=== PATIENT | male | born 1950 | race Caucasian/White ===

== ENCOUNTER → 2019-11-16 | Outpatient (CLI) | payer MEDICARE, BC ==
--- NOTE | 2019-11-23 12:51 | P.ARTDOP ---
Arterial Doppler LOWER EXTREMITY ARTERIAL DOPPLER: DATE OF SERVICE: 11/16/2019 Reason for study: Bilateral leg cramping. Doppler waveforms: Atypical bilaterally throughout.. Pulse volume recording: []. Pressure gradients: There is a significant gradient above the low thigh bilaterally. More significant on the right than the left. But there is a step up of pressure across the knee on the right. Ankle-brachial indices: 0.57 on the right and 0.45 on the left.. Toe brachial indices: 0.62 on the right, 0.40 on the left Impression: Moderate bilateral fem-pop disease. Cannot exclude iliac component. I am dubious about the right thigh pressure given the waveforms and pressures below. Clinical correlation recommended..
== END | disposition home or self-care (01) ==
LOC: RADUSWWP 07:29
PROVIDERS: ATTEND Family Medicine
DX: I73.9 Peripheral vascular disease, unspecified (principal)
CPT/HCPCS: 93923

== ENCOUNTER → 2020-01-10 | Outpatient (CLI) | payer MEDICARE, BC ==
[2020-01-10 07:59] LABS: African American GFR (CKD) >90 (>60 ml/min/1.73 sqM); Blood Urea Nitrogen 17 mg/dL (9-20); Non-African American GFR(CKD) 78 (>60 ml/min/1.73 sqM)
--- NOTE | 2020-01-10 12:21 | CT ---
EXAMINATION TYPE: CT angio abd aorta w/Runoff DATE OF EXAM: 01/10/2020 COMPARISON: None HISTORY: PVD CT DLP: 1017.8 mGycm, Automated Exposure Control for Dose Reduction was Utilized. CONTRAST: CT scan of the abdomen and pelvis is performed with oral and with IV Contrast, patient injected with 125 mL of Isovue 370. Three-dimensional reconstructions on an alternate workstation. FINDINGS: The abdominal aorta shows atheromatous change. The celiac axis, superior mesenteric artery, renal arteries, inferior mesenteric artery, common iliac and external iliac arteries are patent. Pro ximal internal iliac arteries are occluded, increased density within some of the branches may be due to atheromatous change. The external iliac arteries show atheromatous changes, caliber changes, the left common femoral arter y is small and shows atheromatous change. Superficial femoral artery on the left is occluded. Deep fe moral artery and branches are patent. The popliteal artery is also diminutive, shows reconstitution a t the level of the knee joint, trifurcation vessels are patent proximally, segmental enhancement of t he anterior tibial artery is present as the artery extends peripherally. Peroneal and posterior tibia l arteries are patent peripherally. Dorsalis pedis artery show some enhancement in the foot. On the right the superficial femoral artery is also occluded proximally. Deep femoral artery branches are patent, there is reconstitution of the popliteal artery at the level of the knee. Trifurcation v essels are patent proximally. Segmental enhancement of the anterior tibial arteries present as it ext ends peripherally. The posterior tibial artery and peroneal arteries are patent peripherally. There i s some enhancement of the dorsalis pedis in the foot. LUNG BASES: No significant abnormality is appreciated. LIVER/GB: No significant abnormality is appreciated. PANCREAS: No significant abnormality is seen. SPLEEN: No significant abnormality is seen. ADRENALS: No significant abnormality is seen. KIDNEYS: No significant abnormality is seen. BOWEL: Diverticular changes noted in the sigmoid colon. PROSTATE/SEMINAL VESICLES: No gross abnormal ity seen. LYMPH NODES: No greater than 1cm abdominal or pelvic lymph nodes are appreciated. OSSEOUS STRUCTURES: No significant abnormality is seen. OTHER: No significant additional abnormality is seen. IMPRESSION: Peripheral vascular occlusive disease, bilateral superficial femoral artery occlusion wit h reconstitution of the popliteal arteries. Internal iliac arteries appear occluded proximally.
== END | disposition home or self-care (01) ==
LOC: RADCTMAIN 07:20
PROVIDERS: ATTEND Surgery
DX: I70.201 Unspecified atherosclerosis of native arteries of extremities, right leg (principal); I70.202 Unspecified atherosclerosis of native arteries of extremities, left leg; I74.5 Embolism and thrombosis of iliac artery
CPT/HCPCS: 82565; 84520; 75635; 36415; Q9967

== ENCOUNTER 2022-09-17 10:16 | Inpatient (IN) | payer MEDICARE, BC ==
--- NOTE | 2022-09-17 11:31 | XR ---
EXAMINATION TYPE: XR chest 2V DATE OF EXAM: 09/17/2022 11:24 AM COMPARISON: None TECHNIQUE: XR chest 2V Frontal and lateral views of the chest. CLINICAL INDICATION:Male, 71 years old with history of altered mental status; FINDINGS: Lungs/Pleura: There is flattening of the diaphragm with increased lucency of the lungs. No evidence o f pneumothorax, pleural effusion or focal consolidation. Biapical pleural thickening. Pulmonary vascularity: Unremarkable. Heart/mediastinum: Cardiomediastinal silhouette is unremarkable. Musculoskeletal: Multiple level degenerative disc disease changes seen throughout the spine. IMPRESSION: 1. No acute cardiopulmonary disease process. 2. COPD changes.
--- NOTE | 2022-09-17 11:36 | CT ---
EXAMINATION TYPE: CT brain wo con DATE OF EXAM: 09/17/2022 COMPARISON: None HISTORY: 71-year-old male Loss of vision in Right eye TECHNIQUE: Examination was done in axial plane without intravenous contrast. Coronal and sagittal r econstructions performed. CT DLP: 1231.4 mGycm Automated exposure control for dose reduction was used. FINDINGS: There is no evidence of acute intracranial hemorrhage, acute ischemic changes, mass, mass-effect, or extra-axial fluid collection. There is no effacement of cerebral sulci or basal subarachnoid cister ns. There is no hydrocephalus. There is no midline shift. Lucas-white matter distinction is preserv ed. There is mild to moderate generalized supratentorial volume loss. Secondary mild prominence to the ve ntricular system. Some metastatic calcifications within the carotid siphons. Negative cisterna magna. Trace mucosal thickening maxillary sinuses and anterior ethmoid air cells. Mastoid air cells well pne umatized. Orbits and globes appear intact. Rightward nasal septal deviation. IMPRESSION: [id number] generalized cerebral atrophy. No acute intracranial abnormality seen.
--- NOTE | 2022-09-17 11:53 | CT ---
EXAMINATION TYPE: CT angio head neck DATE OF EXAM: 09/17/2022 COMPARISON: CT brain same day HISTORY: 71-year-old male neurologic deficit, acute, stroke suspected, loss of vision in the right ey e. TECHNIQUE: Contiguous axial scanning of the head and neck performed with IV Contrast, patient injecte d with 65 mL of Isovue 370. Coronal/sagittal MIP reconstructions performed. 3-D reconstructions gener ated on a dedicated workstation. CT DLP: 1884.8 mGycm Automated exposure control for dose reduction was used. FINDINGS: NECK: Emphysematous change in the upper lungs. Biapical parenchymal scarring. Calcified granuloma posterior left upper lung. Conventional arch was a branching anatomy. The vertebral arteries are codominant and patent throughout their course. The right common carotid artery is patent. There is moderate atelectatic change at the carotid bifurcation. Moderate narrowing at the origin of the right ECA. There is moderate, just over 50% narrowing within the right carotid bulb by NASCET criteria. The left common carotid artery is patent. Moderate atherosclerotic change of the left carotid bifurcation. Severe, 90% stenosis at the origin of the left ECA. There is mild, less than 25% narrowing at the left carotid bulb by NASCET criteria. Additional mild, 25% narrowing mid ICA. BRAIN: The vertebral and basilar arteries as well as the remainder of the posterior circulation appears loving nt. The visualized dural venous sinuses are patent. Mild atherosclerotic calcifications throughout the bilateral internal carotid arteries. The bilateral internal carotid arteries are patent. The proximal right ophthalmic artery is not clearly identified . The left ophthalmic artery is visualized. Hypoplastic A1 segment right HIRAM. Otherwise, anterior cir culation is patent. No aneurysmal change is seen. IMPRESSION: NECK: 1. MODERATE ATHEROSCLEROTIC CHANGE OF THE BILATERAL CAROTID BIFURCATIONS. 2. SEVERE, 90% STENOSIS OF THE ORIGIN OF THE LEFT ECA AND MODERATE AT THE ORIGIN OF THE RIGHT ECA. 3. MODERATE, JUST OVER 50% STENOSIS RIGHT CAROTID BULB. 4. MILD SEGMENTAL NARROWINGS OF THE PROXIMAL AND MID LEFT ICA OF LESS THAN 25%. HEAD: 5. NONVISUALIZATION OF THE TAKEOFF OF THE RIGHT OPHTHALMIC ARTERY COULD REFLECT VESSEL OCCLUSION. 6. SCATTERED MILD ATHEROSCLEROTIC CALCIFICATIONS THROUGHOUT THE CAROTID SIPHONS. THERE IS OTHERWISE, NO LARGE VESSEL INTRACRANIAL ARTERIAL OCCLUSION, SIGNIFICANT STENOSIS, OR ANEURYSMAL CHANGE SEEN.
[2022-09-17] MEDS ORDERED: ASPIRIN 325 MG TAB PO STA ×2 (12:17→13:05)
[2022-09-17] MEDS ORDERED: CLOPIDOGREL 75 MG TAB PO STA (12:17)
[2022-09-17 12:41] LABS: Basophils % (A) 0 %; Eosinophils # (A) 0.2 k/uL (0-0.7); Eosinophils % (A) 3 %; HGB 13.8 gm/dL (13.0-17.5); Lymphocytes # (A) 1.3 k/uL (1.0-4.8); Lymphocytes % (A) 27 %; MCH 31.6 pg (25.0-35.0); MCHC 33.7 g/dL (31.0-37.0); MCV 93.9 fL (80.0-100.0); Mean Platelet Volume 9.4; Monocytes # (A) 0.3 k/uL (0-1.0); Monocytes % (A) 5 %; Neutrophils % (A) 62 %; Platelet Count 163 k/uL (150-450); RBC 4.37 m/uL (4.30-5.90); RDW 12.3 % (11.5-15.5); WBC 4.9 k/uL (3.8-10.6)
[2022-09-17 12:52] LABS: Appearance,Urine Clear (Clear); Bilirubin,Urine Negative (Negative); Blood,Urine Negative (Negative); Color,Urine Colorless; Glucose,Urine (UA) Negative (Negative); Ketones,Urine Negative (Negative); Leukocyte Esterase,Urine Negative (Negative); Nitrite,Urine Negative (Negative); Protein,Urine Negative (Negative); Specific Gravity,Urine 1.019 (1.001-1.035); Urobilinogen,Urine <2.0 mg/dL (<2.0)
[2022-09-17 13:05] LABS: ALT 22 U/L (4-49); African American GFR (CKD) 88 (>60 ml/min/1.73 sqM); Anion Gap 9 mmol/L; Blood Urea Nitrogen 19 mg/dL (9-20); Calcium 8.3 mg/dL (8.4-10.2); Carbon Dioxide 21 mmol/L (22-30); Chloride 107 mmol/L (98-107); Creatine Kinase 102 U/L (55-170); Glucose 88 mg/dL (74-99); Non-African American GFR(CKD) 76 (>60 ml/min/1.73 sqM); Sodium 137 mmol/L (137-145); Total Bilirubin 0.7 mg/dL (0.2-1.3)
[2022-09-17 13:14] LABS: Partial Thromboplastin Time 22.4 sec (22.0-30.0); Prothrombin Time 10.2 sec (9.0-12.0)
[2022-09-17 13:16] LABS: Potassium 5.4 mmol/L (3.5-5.1)
[2022-09-17 13:17] LABS: AST 26 U/L (17-59); Albumin 3.9 g/dL (3.5-5.0); Alkaline Phosphatase 74 U/L (38-126); Total Protein 6.7 g/dL (6.3-8.2)
--- NOTE | 2022-09-17 13:22 | ED ---
General Adult HPI - General Chief complaint: Neuro Symptoms/Deficit Stated complaint: syncope Time Seen by Provider: 09/17/22 10:30 Source: patient, RN notes reviewed, old records reviewed Mode of arrival: ambulatory Limitations: no limitations - History of Present Illness Initial comments: Patient is a 71-year-old male who presents emergency Department complaining of sudden onset right eye blindness that occurred prior to arrival. Patient states that occurred at approximately 745 and was resolved by 8 AM this morning. Patient has no symptoms at this time. Chronically wears corrective lenses. Denies any blurry vision. Denies any headaches. Denies being on blood thinners. Does have a history of carotid artery disease and has been seeing Dr. Deluna in the office for this. He was due to have a CT angiogram of the head and neck done later this week but called Dr. Deluna who instructed him to come to the ER at this time. Patient currently denies any sensory deficits, weakness. Has no acute complaints at this time. No visual complaints. Presents for further evaluation. - Related Data Home Medications Medication Instructions Recorded Confirmed Aspirin EC [Ecotrin] 81 mg PO HS 05/14/15 09/17/22 Atorvastatin [Lipitor] 40 mg PO DAILY 09/17/22 09/17/22 Fish Oil/Dha/Epa [Fish Oil 1,200 2 cap PO DAILY 09/17/22 09/17/22 mg Fish Oil] cilostazoL [Pletal] 100 mg PO BID 09/17/22 09/17/22 lisinopriL [Prinivil] 20 mg PO DAILY 09/17/22 09/17/22 Allergies Allergy/AdvReac Type Severity Reaction Status Date / Time No Known Allergies Allergy Verified 09/17/22 11:34 Review of Systems ROS Statement: Those systems with pertinent positive or pertinent negative responses have been documented in the HPI. Review of Systems: CONST: Denies fever EYES: Denies blurry vision ENT: Denies nasal congestion C/V: Denies Chest pain RESP: Denies shortness of breath GI: Denies abdominal pain : Denies dysuria SKIN: Denies rash. MSK: Denies joint pain. NEURO: Denies headache ROS Other: All systems not noted in ROS Statement are negative. Past Medical History Past Medical History: Hypertension Additional Past Medical History / Comment(s): PAD History of Any Multi-Drug Resistant Organisms: None Reported Past Surgical History: No Surgical Hx Reported Additional Past Anesthesia/Blood Transfusion Reaction / Comment(s): PT HAS NEVER RECEIVED ANESTHESIA. Past Psychological History: No Psychological Hx Reported Smoking Status: Never smoker Past Alcohol Use History: Occasional Past Drug Use History: None Reported, Marijuana - Past Family History Mother Family Medical History: Cancer Additional Family Medical History / Comment(s): BREAST CANCER General Exam - General Exam Comments Initial Comments: General: Appears in no acute distress. HEAD: Normal with no signs of head trauma. EYES: PERRLA, EOMI, conjunctiva normal, no discharge. Pupils are 2 mm and equal bilaterally. Visual acuity is unchanged with his corrective lenses, and is 20/20 to 20/25 in both eyes. ENT: Hearing grossly intact, normal oropharynx. RESPIRATORY: Clear breath sounds bilaterally. No wheezes, rales, or rhonchi. C/V: Regular rate and rhythm. S1 and S2 auscultated, no edema, peripheral p ulses 2+ and intact throughout ABD: Abd is soft, nontender, nondistended EXT: Normal range of motion, no obvious deformity SKIN: No rashes or lesions observed on exposed skin. NEURO: Alert and oriented x 4. Cranial nerves II-XII intact. No focal sensory or strength deficits. NIH of 0. GCS of 15. Limitations: no limitations Course Vital Signs 09/17/22 09/17/22 09/17/22 10:23 10:31 12:31 Temperature 98.2 F 98.8 F Pulse Rate 58 L 84 80 Respiratory 20 16 16 Rate Blood Pressure 172/75 151/75 136/76 O2 Sat by Pulse 98 97 99 Oximetry Medical Decision Making - Medical Decision Making Was pt. sent in by a medical professional or institution (, PA, BRIDGE WORKER APPRENTICE, urgent care, hospital, or [facility]...) When possible be specific @ -No Did you speak to anyone other than the patient for history (EMS, parent, family, police, friend...)? What history was obtained from this source @ -No Did you review nursing and triage notes (agree or disagree)? Why? @ -I reviewed and agree with nursing and triage notes Were old charts reviewed (outside hosp., previous admission, EMS record, old EKG, old radiological studies, urgent care reports/EKG's, [facility] records)? Report findings @ -No old charts were reviewed Differential Diagnosis (chest pain, altered mental status, abdominal pain women, abdominal pain men, vaginal bleeding, weakness, fever, dyspnea, syncope, headache, dizziness, GI bleed, back pain, seizure, CVA, palpatations, mental health, musculoskeletal)? @ -Differential CVA Ischemic stroke, hemorrhagic stroke, brain tumor, atypical migraine, Wernicke's encephalopathy, seizure, multiple sclerosis, meningitis, encephalitis, hypoglycemia, Guillain-Marin, electrolytes disturbance, myasthenia gravis.... This is not meant to be an all-inclusive list EKG interpreted by me (3pts min.). @ -As above X-rays interpreted by me (1pt min.). @ -Chest x-ray shows no obvious acute cardio pulmonary process. CT interpreted by me (1pt min.). @ -CT of the brain reveals no obvious acute intracranial process other than chronic atrophy. CT angiogram shows severe stenosis of the left ECA as well as stenosis of the right carotids. Patient also has possible vessel occlusion of the right ophthalmic artery as is no visualization of the takeoff per radiology. No other large vessel obvious occlusion or abnormality present other than the stenosis. U/S interpreted by me (1pt. min.). @ -None done What testing was considered but not performed or refused? (CT, X-rays, U/S, labs)? Why? @ -None What meds were considered but not given or refused? Why? @ -None Did you discuss the management of the patient with other professionals (professionals i.e. DrSilvina, PA, BRIDGE WORKER APPRENTICE, lab, RT, psych nurse, professor of social work, operator cavity pump, teacher, licensing officer, pillowcase cleaner)? Give summary @ -Yes, discussed with neuro critical care on-call Dr. Kenyon who was in agreement with no TPA for the patient. Recommended Plavix and aspirin for the patient. Recommended admission for neurology evaluation. Discussed with Dr. Dario andino of neurology who was in agreement with the plan. Discussed with the admitting physician, Dr. pathak who requested I also consult ophthalmology. Was smoking cessation discussed for >3mins.? @ -No Was critical care preformed (if so, how long)? @ -Yes, 40 minutes Were there social determinants of health that impacted care today? How? (Homelessness, low income, unemployed, alcoholism, drug addiction, tr ansportation, low edu. Level, literacy, decrease access to med. care, shelter, rehab)? @ -No Was there de-escalation of care discussed even if they declined (Discuss DNR or withdrawal of care, Hospice)? DNR status @ -No What co-morbidities impacted this encounter? (DM, HTN, Smoking, COPD, CAD, Cancer, CVA, ARF, Chemo, Hep., AIDS, mental health diagnosis, sleep apnea, morbid obesity)? @ -Carotid artery stenosis Was patient admitted / discharged? Hospital course, mention meds given and route, prescriptions, significant lab abnormalities, going to OR and other pertinent info. @ -With some the patient's presentation and physical exam, I'm concerned for possible stroke for the patient. NIH is currently 0. Therefore stroke activation was not made. Patient is not a TPA candidate as risks far outweigh the benefits at this point is patient has no symptoms and visual acuity has returned to normal. Vital signs within except for limits. Patient was in agreement this plan. Patient's labs are unremarkable other than a hemolyzed potassium which is actually normal. Patient's imaging does show no obvious acute intracranial process, bilateral carotid stenosis, as well as possible occlusion of the right ophthalmic artery despite patient having no current symptoms at this time. I dictated patient. I spoke with neuro care care on-call, Dr. Kenyon he was in agr eement the patient is still not a TPA candidate as NIH remained 0 and has no symptoms. He recommended Plavix and aspirin and medical management. Recommended admission. I discussed this with the patient and he was in agreement with this plan. I discussed with Dr. Delong of neurology was in agreement with the plan. I spoke with the admitting physician, Dr. pathak who accepted the patient and recommended also consult as well. This was placed. Patient admitted in stable condition. Patient was given threatened 25 millions of aspirin as well as Plavix. I also consulted patient's chest with surgeon Dr. Deluna for evaluation while he is here. Undiagnosed new problem with uncertain prognosis? @ -No Drug Therapy requiring intensive monitoring for toxicity (Heparin, Nitro, Insulin, Cardizem)? @ -No Were any procedures done? @ -No Diagnosis/symptom? @ -Suspected TIA, possible right ophthalmic arterial occlusion Acute, or Chronic, or Acute on Chronic? @ -Acute Uncomplicated (without systemic symptoms) or Complicated (systemic symptoms)? @ -Uncomplicated Side effects of treatment? @ -No Exacerbation, Progression, or Severe Exacerbation? @ -No Poses a threat to life or bodily function? How? (Chest pain, [place], [place], pneumonia, PE, COPD, DKA, ARF, appy, cholecystitis, CVA, Diverticulitis, Homicidal, Suicidal, threat to staff... and all critical care pts) @ -Potentially, yes. - Lab Data Result diagrams: 09/17/22 10:54 09/17/22 13:39 Lab Results 09/17/22 09/17/22 09/17/22 Range/Units 10:54 10:54 10:54 WBC 4.9 (3.8-10.6) k/uL RBC 4.37 (4.30-5.90) m/uL Hgb 13.8 (13.0-17.5) gm/dL Hct 41.0 (39.0-53.0) % MCV 93.9 (80.0-100.0) fL MCH 31.6 (25.0-35.0) pg MCHC 33.7 (31.0-37.0) g/dL RDW 12.3 (11.5-15.5) % Plt Count 163 (150-450) k/uL MPV 9.4 Neutrophils % 62 % Lymphocytes % 27 % Monocytes % 5 % Eosinophils % 3 % Basophils % 0 % Neutrophils # 3.0 (1.3-7.7) k/uL Lymphocytes # 1.3 (1.0-4.8) k/uL Monocytes # 0.3 (0-1.0) k/uL Eosinophils # 0.2 (0-0.7) k/uL Basophils # 0.0 (0-0.2) k/uL PT 10.2 (9.0-12.0) sec INR 1.0 (<1.2) APTT 22.4 (22.0-30.0) sec Sodium (137-145) mmol/L Potassium (3.5-5.1) mmol/L Chloride (98-107) mmol/L Carbon Dioxide (22-30) mmol/L Anion Gap mmol/L BUN (9-20) mg/dL Creatinine (0.66-1.25) mg/dL Est GFR (CKD-EPI)AfAm (>60 ml/min/1.73 sqM) Est GFR (CKD-EPI)NonAf (>60 ml/min/1.73 sqM) Glucose (74-99) mg/dL Calcium (8.4-10.2) mg/dL Total Bilirubin (0.2-1.3) mg/dL AST (17-59) U/L ALT (4-49) U/L Alkaline Phosphatase (38-126) U/L Creatine Kinase (55-170) U/L Troponin I (0.000-0.034) ng/mL Total Protein (6.3-8.2) g/dL Albumin (3.5-5.0) g/dL Urine Color Colorless Urine Appearance Clear (Clear) Urine pH 7.0 (5.0-8.0) Ur Specific [facility] 1.019 (1.001-1.035) Urine Protein Negative (Negative) Urine Glucose (UA) Negative (Negative) Urine Ketones Negative (Negative) Urine Blood Negative (Negative) Urine Nitrite Negative (Negative) Urine Bilirubin Negative (Negative) Urine Urobilinogen <2.0 (<2.0) mg/dL Ur Leukocyte Esterase Negative (Negative) 09/17/22 09/17/22 09/17/22 Range/Units 10:54 10:54 13:39 WBC (3.8-10.6) k/uL RBC (4.30-5.90) m/uL Hgb (13.0-17.5) gm/dL Hct (39.0-53.0) % MCV (80.0-100.0) fL MCH (25.0-35.0) pg MCHC (31.0-37.0) g/dL RDW (11.5-15.5) % Plt Count (150-450) k/uL MPV Neutrophils % % Lymphocytes % % Monocytes % % Eosinophils % % Basophils % % Neutrophils # (1.3-7.7) k/uL Lymphocytes # (1.0-4.8) k/uL Monocytes # (0-1.0) k/uL Eosinophils # (0-0.7) k/uL Basophils # (0-0.2) k/uL PT (9.0-12.0) sec INR (<1.2) APTT (22.0-30.0) sec Sodium 137 (137-145) mmol/L Potassium 5.4 H 4.6 (3.5-5.1) mmol/L Chloride 107 (98-107) mmol/L Carbon Dioxide 21 L (22-30) mmol/L Anion Gap 9 mmol/L BUN 19 (9-20) mg/dL Creatinine 1.00 (0.66-1.25) mg/dL Est GFR (CKD-EPI)AfAm 88 (>60 ml/min/1.73 sqM) Est GFR (CKD-EPI)NonAf 76 (>60 ml/min/1.73 sqM) Glucose 88 (74-99) mg/dL Calcium 8.3 L (8.4-10.2) mg/dL Total Bilirubin 0.7 (0.2-1.3) mg/dL AST 26 (17-59) U/L ALT 22 (4-49) U/L Alkaline Phosphatase 74 (38-126) U/L Creatine Kinase 102 (55-170) U/L Troponin I <0.012 (0.000-0.034) ng/mL Total Protein 6.7 (6.3-8.2) g/dL Albumin 3.9 (3.5-5.0) g/dL Urine Color Urine Appearance (Clear) Urine pH (5.0-8.0) Ur Specific [facility] (1.001-1.035) Urine Protein (Negative) Urine Glucose (UA) (Negative) Urine Ketones (Negative) Urine Blood (Negative) Urine Nitrite (Negative) Urine Bilirubin (Negative) Urine Urobilinogen (<2.0) mg/dL Ur Leukocyte Esterase (Negative) - EKG Data -: EKG Interpreted by Me EKG Comments: 12-lead Electrocardiogram Interpretation Note EKG was reviewed and interpreted by myself. 12-lead ECG performed at 1034 is interpreted by me as revealing normal sinus rhythm at a rate of 83 beats per minute. Indeterminate axis. NH interval is 122 ms, QRS duration is 87 ms, QTc is 405 ms. There were no ST or T wave abnormalities to suggest myocardial ischemia or injury. R wave progression across the precordium was satisfactory. By my interpretation this EKG is non-diagnostic for acute ischemia. Critical Care Time Critical Care Time: Yes Total Critical Care Time: 40 Disposition Clinical Impression: TIA (transient ischemic attack), Carotid stenosis Narrative: Possible right ophthalmic artery occlusion Disposition: ADMITTED IP TO THIS HOSP Condition: Stable Referrals: Sydney Jack DO [Primary Care Provider] - 1-2 days Time of Disposition: 12:55
[2022-09-17] MEDS ORDERED: TROPICAMIDE 1% OPHTH DROPS 2 ML BTL BOTH EYES ONE (19:25)
[2022-09-17] MEDS ORDERED: PROPARACAINE 0.5% OPHTH DROPS 15 ML BTL BOTH EYES STA (19:25)
[2022-09-17] MEDS ORDERED: PHENYLEPHRINE 2.5% OPHTH DRP 2ML BOTH EYES SCH (19:30)
--- NOTE | 2022-09-17 20:59 | P.HPIM ---
History of Present Illness This is a pleasant 71 years old male with past medical history of hypertension Patient presents because of a blindness of the left eye. Patient states that in the developed right eye vision difficulty maroi alberto hole his vision of the right eye became greatly. It was not painful and Lasix for about 10 minutes. Patient denies any other complaints, no headache dizziness weakness or numbness. No facial deviation. No slurred speech. No other physical complaints Patient nonsmoker, drinks alcohol moderately, and uses marijuana at times. At home he takes aspirin 81 mg. His PCP is Dr. Damian. Vitals are stable She has unremarkable labs including CBC, INR, BMP, liver enzymes. Urine analysis is negative. Chest x-ray: COPD no acute process CT of the brain: Cerebral atrophy. No acute intracranial process CTA of the head and neck: Moderate atherosclerotic changes of the bilateral carotid bifurcation severe 90% stenosis in the origin of the left ECA and moderate at the origin of the right ECA. Over 50% stenosis of the right carotid bulb. Nonvisualization of the takeoff of the right ophthalmic artery could reflect vessel occlusion. Review of Systems Review of systems CONSTITUTIONAL: No fever, no malaise, no fatigue. HEENT: No recent visual problems or hearing problems. Denied any sore throat. CARDIOVASCULAR: No orthopnea, PND, no palpitations, no syncope. PULMONARY: No shortness of breath, no cough, no hemoptysis. GASTROINTESTINAL: No diarrhea, no nausea, no vomiting, no abdominal pain. Normoactive bowel sounds. NEUROLOGICAL: No headaches, no weakness, no numbness. HEMATOLOGICAL: Denies any bleeding or petechiae. GENITOURINARY: Denies any burning micturition, frequency, or urgency. MUSCULOSKELETAL/RHEUMATOLOGICAL: Denies any joint pain, swelling, or any muscle pain. ENDOCRINE: Denies any polyuria or polydipsia. Past Medical History Past Medical History: Hypertension Additional Past Medical History / Comment(s): PAD History of Any Multi-Drug Resistant Organisms: None Reported Past Surgical History: No Surgical Hx Reported Additional Past Anesthesia/Blood Transfusion Reaction / Comment(s): PT HAS NEVER RECEIVED ANESTHESIA. Past Psychological History: No Psychological Hx Reported Smoking Status: Never smoker Past Alcohol Use History: Occasional Past Drug Use History: None Reported, Marijuana - Past Family History Mother Family Medical History: Cancer Additional Family Medical History / Comment(s): BREAST CANCER Medications and Allergies Home Medications Medication Instructions Recorded Confirmed Type Aspirin EC [Ecotrin] 81 mg PO HS 05/13/09/17/22 History Atorvastatin [Lipitor] 40 mg PO DAILY 09/17/22 09/17/22 History Fish Oil/Dha/Epa [Fish Oil 1,200 2 cap PO DAILY 09/17/22 09/17/22 History mg Fish Oil] cilostazoL [Pletal] 100 mg PO BID 09/17/22 09/17/22 History lisinopriL [Prinivil] 20 mg PO DAILY 09/17/22 09/17/22 History Allergies Allergy/AdvReac Type Severity Reaction Status Date / Time No Known Allergies Allergy Verified 09/17/22 11:34 Physical Exam Vitals: Vital Signs Temp Pulse Resp BP Pulse Ox 09/17/22 12:31 98.8 F 80 16 136/76 99 09/17/22 10:31 84 16 151/75 97 09/17/22 10:23 98.2 F 58 L 20 172/75 98 Intake and Output 09/16/22 09/17/22 09/17/22 22:59 06:59 14:59 Other: Weight 90.718 kg GENERAL: The patient is alert and oriented x3, not in any acute distress. Well developed, well nourished. HEENT: Pupils are round and equally reacting to light. EOMI. No scleral icterus. No conjunctival pallor. Normocephalic, atraumatic. No pharyngeal erythema. No thyromegaly. CARDIOVASCULAR: S1 and S2 present. No murmurs, rubs, or gallops. PULMONARY: Chest is clear to auscultation, no wheezing , no crackles. ABDOMEN: Soft, nontender, nondistended, normoactive bowel sounds. No palpable organomegaly. MUSCULOSKELETAL: No joint swelling or deformity. EXTREMITIES: No cyanosis, clubbing, or pedal edema. NEUROLOGICAL: Gross neurological examination did not reveal any focal deficits. SKIN: No rashes. no petechiae. Results CBC & Chem 7: 09/17/22 10:54 09/17/22 13:39 Assessment and Plan Assessment: Possible TIA with left eye blindness that's completely resolved now. CTA: Possible right ophthalmic artery occlusion. Hypertension, dermis of hypertension for the first 24-48 hours Right carotid bulb stenosis more than 50% Plan: Continue with antiplatelet therapy, currently on aspirin 325 mg on Plavix Neurovascular check Check echocardiogram Follow-up within neurology and ophthalmology consult Vascular surgery consult Labs and medication were reviewed.. Continue same treatment. Continue with s ymptomatic treatment. Resume home medication. Monitor labs and vitals. DVT and GI prophylaxis. Further recommendations as per clinical course of the patient DVT prophylaxis: Subcutaneous heparin GI Prophylaxis: Pepcid Prognosis is guarded
[2022-09-17] MEDS ORDERED: HEPARIN SODIUM,PORCINE/PF 5,000 UNIT/0.5 ML SYRINGE SQ SCH (21:00)
[2022-09-17] MEDS: cilostazoL 100 MG TAB PO SCH (21:05)
[2022-09-17] MEDS: FAMOTIDINE 20 MG/2 ML VIAL IV SCH (21:05)
--- NOTE | 2022-09-18 07:38 | CA ---
Transthoracic Echo Report Name: Nato Herman Age: 71 Gender: M : 1950 Exam Date: 09/17/2022 13:52 Exam Location: [facility] Ht (in): 69 Wt (lb): 200 Ordering Physician: Carlos Montalvo MD Attending/Referring Phys: Commercial Carpenter Bryan Bolton Procedure CPT: Indications: Thrombus Cardiac Hx: Technical Quality: Fair Contrast 1: Total Dose (mL): Contrast 2: Total Dose (mL): MEASUREMENTS (Male / Female) Normal Values 2D ECHO LV Diastolic Diameter PLAX 4.2 cm 4.2 - 5.9 / 3.9 - 5.3 cm LV Systolic Diameter PLAX 2.9 cm IVS Diastolic Thickness 0.9 cm 0.6 - 1.0 / 0.6 - 0.9 cm LVPW Diastolic Thickness 0.9 cm 0.6 - 1.0 / 0.6 - 0.9 cm LV Relative Wall Thickness 0.4 RV Internal Dim ED PLAX 3.2 cm LVOT Diameter 2.1 cm Aortic Root Diameter 2.6 cm LA Systolic Diameter LX 2.0 cm 3.0 - 4.0 / 2.7 - 3.8 cm LV Diastolic Volume MOD BP 53.0 cm??? 67 - 155 / 56 - 104 cm??? LV Systolic Volume MOD BP 20.6 cm??? 22 - 58 / 19 - 49 cm??? LV Ejection Fraction MOD BP 61.1 % >= 55 % LV Cardiac Index MOD BP 1280.0 cm???/min???m??? LV Diastolic Volume MOD 4C 65.6 cm??? LV Systolic Volume MOD 4C 24.1 cm??? LV Ejection Fraction MOD 4C 63.3 % LV Cardiac Index MOD 4C 1640.2 cm???/min???m??? LV Diastolic Length 4C 7.2 cm LV Systolic Length 4C 5.9 cm LV Diastolic Volume MOD 2C 42.7 cm??? LV Systolic Volume MOD 2C 16.2 cm??? LV Ejection Fraction MOD 2C 62.0 % LV Cardiac Index MOD 2C 1047.3 cm???/min???m??? LV Diastolic Length 2C 7.0 cm LV Systolic Length 2C 6.4 cm LA Volume 43.3 cm??? 18 - 58 / 22 - 52 cm??? DOPPLER AV Peak Velocity 187.9 cm/s AV Peak Gradient 14.1 mmHg LVOT Peak Velocity 119.7 cm/s LVOT Peak Gradient 5.7 mmHg AV Area Cont Eq pk 2.3 cm??? MV Peak Velocity 129.2 cm/s MV Peak Gradient 6.7 mmHg MV Mean Velocity 67.4 cm/s MV Mean Gradient 2.2 mmHg MV Velocity Time Integral 35.6 cm MR Peak Velocity 532.5 cm/s MR Peak Gradient 113.4 mmHg Mitral E Point Velocity 99.6 cm/s Mitral A Point Velocity 108.8 cm/s Mitral E to A Ratio 0.9 MV Deceleration Time 214.6 ms MV E' Velocity 11.2 cm/s Mitral E to MV E' Ratio 8.9 TR Peak Velocity 144.9 cm/s TR Peak Gradient 8.4 mmHg Right Ventricular Systolic Press 13.8 mmHg PV Peak Velocity 176.2 cm/s PV Peak Gradient 12.4 mmHg FINDINGS Left Ventricle Normal LV size and wall thickness. Left ventricular ejection fraction is estimated at 55-60 %.normal left ventricular wall motion. Normal left ventricular diastolic filling pattern. Right Ventricle Normal right ventricular size. Right Atrium Normal right atrial size. Left Atrium Normal left atrial size. Mitral Valve Structurally normal mitral valve. Mild MR. Aortic Valve Trileaflet aortic valve. No aortic valve stenosis or regurgitation. Tricuspid Valve Structurally normal tricuspid valve. Mild TR. Pulmonic Valve Pulmonic valve not well visualized. Trace PI. Pericardium Normal pericardium. Aorta Normal size aortic root and proximal ascending aorta. CONCLUSIONS 1. Normal left ventricle size and systolic function 2. Mild mitral and tricuspid regurgitation with no evidence of pulmonary hypertension Previewed by: Dr. Jaens Kang MD (Electronically Signed) Final Date: 18 September 2022 07:37
[2022-09-18 08:19] VITALS: TEMP 97.8
[2022-09-18] MEDS: cilostazoL 100 MG TAB PO SCH ×2 (08:19→20:17)
[2022-09-18] MEDS: ASPIRIN 81 MG PO SCH (08:19)
[2022-09-18] MEDS: FAMOTIDINE 20 MG/2 ML VIAL IV SCH ×2 (08:21→20:17)
[2022-09-18] MEDS: HEPARIN SODIUM,PORCINE/PF 5,000 UNIT/0.5 ML SYRINGE SQ SCH ×2 (08:21→20:17)
--- NOTE | 2022-09-18 08:26 | P.CON ---
Consult Note - . Consult date: 09/18/22 Assessment/Plan:: This is a 71 y/o patient of Dr. Shawn Max's who had cataract surgery about [address] Max last saw the patient in February for an update in glasses. There are no known ophthalmologic problems of glaucoma macular degeneration or other casues of poor vision. He has undegone a YAG capsulotomy on the right eye within the past year. However, on the morning of admission the patient had bent down to burr picker something and realized on righting himself that the vision in the right eye was grayed out. The vision in the left eye was unaffected. Over the following 10 minutes the vision in the right eye returned, first from the bottom and moved through to the upper field of view. There were no associated symptoms of weakness, loss of time, dizziness, slurring of speech and no facial dysmorphia - as noted by his who was witness to the resolution of his symptoms. The patient has not had any issues with PMR or GCA, headaches, weakness, etc. He then presented to the ER and Va at that time was 20/20 OD, and 20/25 OS. B asically, this was his baseline vision, per the patient. Va: 20/20 OD, 20/20-3 OS with current glasses External: without any facial asymmetry, normal function of brow, lids, nasal labial folds, no slurring of speech Pupils: no APD IOP: 10 mm OD & 11 mm Hg OS @ 0735 hrs via [place] CF: full OU EOM: full ductions and versions and near point convergence to his nose Conj: white and quiet Cornea: clear AC: deep & quiet Iris: without pathology Dilated with 2.5 Neosynephrine & 1% tropicamide @ 0740 hrs OU, (WILL be dilated for the next 7 hours) Lens: pseudophakia OU, YAG pc noted OD Vit: clear PVD, OU Optic nerve: s/f/p C:D 0.30 OU, normal rim Mac: +FLR, quiet Post Pole: no Hollenhorsts noted Vascular: normal diameter, no occlusions noted A: 1) amaurosis fugax without ophthalmological consequences of the right eye 2) pseudophakia OU P: Agree with onging medical workup for underlying cause. As this patient very astutely noted a right eye only without any other systemic issues this is most likely a pending vascular occlusion. Thank you for this consultation on your patient. He should return to Dr. Max for his routine ophthalmologic care on discharge.
[2022-09-18] MEDS ORDERED: CLOPIDOGREL 75 MG TAB PO SCH (09:00)
[2022-09-18] MEDS ORDERED: ATORVASTATIN 40 MG TAB PO SCH (09:00)
[2022-09-18] MEDS ORDERED: lisinopriL 20 MG TAB PO SCH (09:00)
--- NOTE | 2022-09-18 10:16 | P.GSCN ---
History of Present Illness Consult date: 09/18/22 Reason for Consult: Carotid stenosis Requesting physician: Carlos Montalvo History of present illness: This is a pleasant 71-year-old male who presented yesterday afternoon to the emergency department with concerns for right vision loss. Patient states that he was bent over and when he was getting up he had vision loss that started at the right bottom of his eye and went up and lasted for about 10 minutes. He de nies any other focal deficits. He is known to Dr. Deluna as she has been monitoring carotid stenosis. His past medical history includes hypertension, peripheral arterial disease, and cataract surgery. He is a nonsmoker. He currently denies any focal deficits. Denies any shortness of breath or chest pain. No recent fevers, abdominal pain, nausea, vomiting, or diarrhea. As part of his workup he underwent a CT of the brain as well as a CT angiogram head and neck. Vascular surgery was consulted for carotid stenosis. Both neurology and ophthalmology also following patient. Imaging Brain CT reports mild to moderate generalized cerebral atrophy. No acute intracranial abnormality seen. CT angiogram head and neck reports moderate arthrosclerotic change of the bilateral carotid bifurcations. Severe 90% stenosis of the origin of the left external carotid artery and moderate at the origin of the right external carotid artery. Moderate just over 50% stenosis right carotid bulb. Mild segmental narrowing of the proximal and mid left ICA of less than 25%. Head reported nonvisualization of the takeoff of the right ophthalmic artery could reflect vessel occlusion. Scattered mild arthrosclerotic calcifications throughout the carotid siphons. There is otherwise no large vessel in intracranial arterial occlusion, Significant stenosis or aneurysmal change seen. Review of Systems A 14 point review systems was completed all pertinent positives and negatives as stated in the HPI. Past Medical History Past Medical History: Hypertension Additional Past Medical History / Comment(s): PAD History of Any Multi-Drug Resistant Organisms: None Reported Past Surgical History: No Surgical Hx Reported Additional Past Anesthesia/Blood Transfusion Reaction / Comm: PT HAS NEVER RECEIVED ANESTHESIA. Past Psychological History: No Psychological Hx Reported Smoking Status: Never smoker Past Alcohol Use History: Occasional Past Drug Use History: None Reported, Marijuana - Past Family History Mother Family Medical History: Cancer Additional Family Medical History / Comment(s): BREAST CANCER Medications and Allergies Home Medications Medication Instructions Recorded Confirmed Type Aspirin EC [Ecotrin] 81 mg PO HS 05/14/15 09/17/22 History Atorvastatin [Lipitor] 40 mg PO DAILY 09/17/22 09/17/22 History Fish Oil/Dha/Epa [Fish Oil 1,200 2 cap PO DAILY 09/17/22 09/17/22 History mg Fish Oil] cilostazoL [Pletal] 100 mg PO BID 09/17/22 09/17/22 History lisinopriL [Prinivil] 20 mg PO DAILY 09/17/22 09/17/22 History Allergies Allergy/AdvReac Type Severity Reaction Status Date / Time No Known Allergies Allergy Verified 09/17/22 11:34 Surgical - Exam Vital Signs Temp Pulse Resp BP Pulse Ox 98.2 F 58 L 20 172/75 98 09/17/22 10:09/17/22 10:09/17/22 10:09/17/22 10:09/17/22 10:23 General appearance: The patient is alert, oriented, appears in no acute distress. HET: Head is normocephalic and atraumatic. Pupils are mechanically dilated, recent eyedrops. Pupils are equal and reactive. Neck: Supple. Heart: Regular. Lungs: Equal expansion, normal respiratory effort. Abdomen: Soft, nondistended. Extremities: Normal skin color and turgor. Neurological: No focal deficits. Strength and sensation are grossly intact. Results - Labs 09/17/22 10:54 09/17/22 13:39 Abnormal Lab Results - Last 24 Hours (Table) 09/17/22 Range/Units 10:54 Potassium 5.4 H (3.5-5.1) mmol/L Carbon Dioxide 21 L (22-30) mmol/L Calcium 8.3 L (8.4-10.2) mg/dL Diabetes panel 09/17/22 09/17/22 Range/Units 10:54 13:39 Sodium 137 (137-145) mmol/L Potassium 5.4 H 4.6 (3.5-5.1) mmol/L Chloride 107 (98-107) mmol/L Carbon Dioxide 21 L (22-30) mmol/L BUN 19 (9-20) mg/dL Creatinine 1.00 (0.66-1.25) mg/dL Glucose 88 (74-99) mg/dL Calcium 8.3 L (8.4-10.2) mg/dL AST 26 (17-59) U/L ALT 22 (4-49) U/L Alkaline Phosphatase 74 (38-126) U/L Total Protein 6.7 (6.3-8.2) g/dL Albumin 3.9 (3.5-5.0) g/dL Calcium panel 09/17/22 Range/Units 10:54 Calcium 8.3 L (8.4-10.2) mg/dL Albumin 3.9 (3.5-5.0) g/dL Pituitary panel 09/17/22 09/17/22 Range/Units 10:54 13:39 Sodium 137 (137-145) mmol/L Potassium 5.4 H 4.6 (3.5-5.1) mmol/L Chloride 107 (98-107) mmol/L Carbon Dioxide 21 L (22-30) mmol/L BUN 19 (9-20) mg/dL Creatinine 1.00 (0.66-1.25) mg/dL Glucose 88 (74-99) mg/dL Calcium 8.3 L (8.4-10.2) mg/dL Adrenal panel 09/17/22 09/17/22 Range/Units 10:54 13:39 Sodium 137 (137-145) mmol/L Potassium 5.4 H 4.6 (3.5-5.1) mmol/L Chloride 107 (98-107) mmol/L Carbon Dioxide 21 L (22-30) mmol/L BUN 19 (9-20) mg/dL Creatinine 1.00 (0.66-1.25) mg/dL Glucose 88 (74-99) mg/dL Calcium 8.3 L (8.4-10.2) mg/dL Total Bilirubin 0.7 (0.2-1.3) mg/dL AST 26 (17-59) U/L ALT 22 (4-49) U/L Alkaline Phosphatase 74 (38-126) U/L Total Protein 6.7 (6.3-8.2) g/dL Albumin 3.9 (3.5-5.0) g/dL Assessment and Plan Assessment: 1. Symptomatic right ICA stenosis just over 50% per CTA 2. Amaurosis fugax, affecting right eye likely from TIA. Now resolved. 3. History of hypertension Plan: 1. CT angiogram head and neck imaging reviewed by Dr. Deluna and agrees with findings 2. Continue current medications 3. Await MRA head and neck and MRI brain results 4. Consult to cardiology, cardiac clearance for carotid endarterectomy versus trans-carotid artery revascularization 5. Await further recommendations from neurology Thank you for this consultation, we will continue to follow. The impression and plan of care has been dictated as directed. I performed a history and examination of this patient, discussed the same with the dictator. I agree with the dictator's note ,documented as a scribe. Any additional findings or plans will be noted.
--- NOTE | 2022-09-18 10:39 | P.CNNES ---
History of Present Illness Consult date: 09/17/22 Requesting physician: Carlos Montalvo Reason for Consult: TIA/possible right opth art occlusion History of Present Illness: Patient is a 71-year-old right-handed male with history of hypertension, hyperlipidemia came to the hospital today at 10:16 AM for right amaurosis fugax. Patient states that he was feeling fine, at around 7:45 AM he bent over to get clothes from the drawer, when he suddenly developed graying in the vision only in right eye. He closed one and then the other eye, and it was monocular, involving only the right eye. The symptoms lasted for about 10 minutes and just like a curtain, the vision reappeared bottom up. The vision completely cleared by 8 AM. There were no associated focal neurological symptoms like slurred speech, facial droop, focal weakness. Patient denied any headache, or any dizziness. Patient denies any history of strokes or TIA in the past. He does take aspirin 81 mg daily for the last 3 years, compliant. Patient has history of cataract surgery in the past. Vital signs on arrival blood pressure 172/75, which came down to 151/75, pulse rate 58, temperature 98.2. CT head revealed mild to moderate generalized cerebral atrophy. No acute intracranial abnormality seen. I personally reviewed CT head, agree with the findings. EKG shows sinus rhythm. Chest x-ray showed no acute process. COPD changes. Patient has history of hypertension for last 6 or 7 years, denies diabetes. He smoked 2 packs per day for 35 years, quit 15 years ago. He takes few drinks 2-3 times a week. Last night he took 2 drinks of rum and Coke, half shot in each. Patient does have peripheral arterial disease for which he follows up with Dr. Deluna. Home medications include aspirin 81 mg at bedtime, lisinopril 20 mg, Pletal 100 mg twice a day, Lipitor 40 mg. Review of Systems Constitutional: Denies chills, Denies fever Eyes: right loss of vision (As per HPI, symptoms resolved now.), denies blurred vision, denies diplopia, denies pain Ears: deny: decreased hearing, ear discharge Ears, nose, mouth and throat: Denies headache, Denies sore throat Cardiovascular: Denies chest pain, Denies shortness of breath Respiratory: Denies cough, Denies excessive sputum Gastrointestinal: Denies abdominal pain, Denies diarrhea, Denies nausea, Denies vomiting Musculoskeletal: Denies low back pain, Denies myalgias, Denies neck pain Integumentary: Denies pruritus, Denies rash Neurological: Reports as per HPI Psychiatric: Denies anxiety, Denies depression Endocrine: Denies fatigue, Denies weight change Hematologic/Lymphatic: Denies easy bleeding, Denies easy bruising Past Medical History Past Medical History: Hypertension Additional Past Medical History / Comment(s): PAD History of Any Multi-Drug Resistant Organisms: None Reported Past Surgical History: No Surgical Hx Reported Additional Past Anesthesia/Blood Transfusion Reaction / Comment(s): PT HAS NEVER RECEIVED ANESTHESIA. Past Psychological History: No Psychological Hx Reported Smoking Status: Never smoker Past Alcohol Use History: Occasional Additional Past Alcohol Use History / Comment(s): SMOKED FOR 40 YEARS , 1 & 1/2 -2 PPD. QUIT SMOKING 5 YEARS AGO. DRINKS 12 BEERS PER WEEK. Past Drug Use History: None Reported, Marijuana - Past Family History Mother Family Medical History: Cancer Additional Family Medical History / Comment(s): BREAST CANCER Medications and Allergies Home Medications Medication Instructions Recorded Confirmed Type Aspirin EC [Ecotrin] 81 mg PO HS 05/14/15 09/17/22 History Atorvastatin [Lipitor] 40 mg PO DAILY 09/17/22 09/17/22 History Fish Oil/Dha/Epa [Fish Oil 1,200 2 cap PO DAILY 09/17/22 09/17/22 History mg Fish Oil] cilostazoL [Pletal] 100 mg PO BID 09/17/22 09/17/22 History lisinopriL [Prinivil] 20 mg PO DAILY 09/17/22 09/17/22 History Allergies Allergy/AdvReac Type Severity Reaction Status Date / Time No Known Allergies Allergy Verified 09/17/22 11:34 Physical Examination - Vital Signs Vital Signs: Vital Signs Temp Pulse Pulse Resp BP BP Pulse Ox 09/17/22 17:10 78 18 141/68 99 09/17/22 16:17 98.4 F 74 16 168/91 97 09/17/22 12:31 98.8 F 80 16 136/76 99 09/17/22 10:31 84 16 151/75 97 09/17/22 10:23 98.2 F 58 L 20 172/75 98 Intake and Output 0709/17/22 09/17/22 06:59 14:59 22:59 Other: # Voids 1 Weight 90.718 kg 90.718 kg Patient is an elderly male, very pleasant, in no acute distress. Patient is alert awake oriented to time place and person. Speech and language functions are normal. Patient can name and repeat very well. No aphasia or dysarthria. Attention, concentration and fund of knowledge is adequate. On cranial nerve examination, pupils are equal, round and reacting to light, visual ramirez are full on confrontation, with no neglect on double simultaneous stimulation. Extraocular muscles are intact with no nystagmus. Face is symmetric, tongue protrudes to the midline. Palatal elevation and sensation normal, hearing and shoulder shrug normal, facial sensation normal. On muscle strength testing, there is no pronator drift and the strength is normal in arms and legs distally and proximally. Deep tendon reflexes are symmetric 2 in the biceps, 2 brachioradialis, 2+ knees, 2 ankles and plantars downgoing bilaterally. Sensory to touch is equal with no neglect on double simultaneous stimulation. Cerebellar function showed no ataxia for [id number] testing. No dysdiadochokinesia. No ataxia for [id number] testing on either side. Tone and bulk of muscles normal. Gait deferred.. On general examination, there is no carotid bruit or murmur, S1-S2 audible. Chest is clear on consultation. Abdomen is soft nontender. No organomegaly, bowel sounds present. Peripheral pulses are present. No edema. Results - Laboratory Findings CBC and BMP: 09/17/22 10:54 09/17/22 13:39 Abnormal Lab Findings: Abnormal Labs 09/17/22 10:54 Potassium 5.4 H Carbon Dioxide 21 L Calcium 8.3 L Assessment and Plan Assessment: * Amaurosis fugax, right eye, the symptoms resolved in 15 minutes. * Hypertension * Hyperlipidemia * X tobacco use * Peripheral arterial disease Plan: * Patient has presented with amaurosis fugax right eye, symptoms resolved in 15 minutes. Patient was taking aspirin 81 mg daily. Agree with adding Plavix 75 mg daily. * CTA of head and neck revealed moderate atherosclerotic changes of the bilateral carotid bifurcations. Moderate, just over 50% stenosis right carotid bulb. Left ICA stenosis of less than 25%. Severe, 90% stenosis of the origin of the left ECA and moderate stenosis at the origin of right ECA. CTA of the head showed nonvisualization of the takeoff of the right ophthalmic artery, could reflect vessel occlusion. Scattered mild atherosclerotic calcifications throughout the carotid siphons. No LVO. * Vascular surgery consultation. * MRI of the brain to rule out acute CVA. MRA of the neck with and without contrast for further evaluation of ICA stenosis . * Ophthalmology also has been consulted. * 2-D echo revealed normal left ventricular size and systolic function with EF 55-60%. Mild MR, TR. No evidence of pulmonary hypertension. Left atrial siz e is normal. * Fasting lipid panel * Hemoglobin A1c * Telemetry monitoring, rule out arrhythmia. * Neurology will follow. Thank you for the consult.
--- NOTE | 2022-09-18 12:13 | CONS ---
CONSULTATION HISTORY OF PRESENT ILLNESS: This is a 71-year-old gentleman with a history of hypertension, hyperlipidemia, peripheral arterial disease, for which he is under the care of Dr. Deluna. He takes lisinopril, Pletal, atorvastatin, and aspirin 81 mg daily. He came into the hospital after an episode of what seems to be amaurosis fugax to the right eye when he lost his vision for maybe about 10 minutes and then regained it back. CT angiography revealed about a 50% lesion in the right internal carotid. Possibility of having some embolization from this lesion is a consideration and Dr. Deluna is considering/contemplating right carotid endarterectomy for this patient. At the time of my evaluation, the patient's vision is 100% back to normal. He is asymptomatic, doing very well. He was also seen by Neurology and CT angiogram also revealed nonvisualization of the takeoff of right ophthalmic artery suggesting that could have been embolized. The patient, however, seems to be doing well at this time, has no chest pain or shortness of breath. He is going for a brain MRI as well. From a cardiac standpoint, he had an echocardiogram, which revealed good systolic function without any significant abnormality on the Doppler exam and no evidence of pulmonary hypertension. This patient is reasonably active. His limiting factor is his lower extremity ischemia, but he can walk 2 blocks without a problem and can climb up and down a flight of stairs without a problem. He has not had a formal stress test in the last several years, but he has no evidence to suggest angina and LV systolic function is normal. I do not see any absolute contraindication for the proposed carotid endarterectomy. I am recommending cautious fluid administration and optimal BP control perioperatively. The patient is on a combination of aspirin, statin, Plavix, and Zestril. Blood pressure control is good. PAST MEDICAL HISTORY: 1. Hypertension. 2. Hyperlipidemia. 3. History of peripheral arterial disease. MEDICATIONS AT HOME: Include; 1. Lisinopril. 2. Aspirin. 3. Atorvastatin. 4. Also, takes Pletal. ALLERGIES: None. PHYSICAL EXAMINATION: VITAL SIGNS: Blood pressure is 122/74, pulse rate is 70 per minute, regular. HEENT: Unremarkable. Fundus was not examined by me. NECK: Supple. There is no JVD. I do not hear a carotid bruit. HEART: Reveals S1, S2 heard normally. No rub, murmur, or gallop. LUNGS: Clear. ABDOMEN: Soft, nontender. LOWER EXTREMITIES: Reveal normal pulses. No edema. CENTRAL NERVOUS SYSTEM: Grossly within normal limits. DIAGNOSTIC DATA: EKG revealed sinus mechanism, no acute changes, arm lead reversal noted. IMPRESSION: 1. Normal physical exam. 2. Episode of amaurosis fugax, from which he has recovered. 3. Moderate bilateral carotid disease. 4. Peripheral artery disease. 5. Hypertension. 6. Hyperlipidemia. RECOMMENDATIONS: No contraindication for the proposed carotid endarterectomy. Advised cautious fluid administration and optimal BP control perioperatively. I will do a repeat EKG. Discussed my thoughts in detail with the patient and . MMODL / IJN: [id number] /
[2022-09-18 12:19] VITALS: PULSE 74
[2022-09-18 14:20] LABS: Chol/HDL Ratio 3.21 Ratio; LDL Cholesterol,Calculated 55.7 mg/dL (0.0-131.0)
--- NOTE | 2022-09-18 14:49 | MR ---
EXAMINATION TYPE: MR brain wo con DATE OF EXAM: 09/18/2022 2:33 PM COMPARISON: CT 09/17/2022. CLINICAL INDICATION:Male, 71 years old with history of Amaurosis fugax; Neuro deficit, vision loss ri ght eye, suspected TIA. TECHNIQUE: Multi planar, multi sequence imaging was performed through the brain including: T1, T2, In version recovery, Diffusion weighted imaging, and gradient echo imaging. No gadolinium was given. FINDINGS: Ventricular dilation in proportion to cerebral atrophy changes. Scattered foci of high T2 s ignal intensity are seen within the periventricular white matter. Midline structures show no abnormal ity. Diffusion-weighted imaging shows no evidence of restricted diffusion. The susceptibility weighte d images do not reveal any evidence for micro-hemorrhage. The bone marrow signal is within normal limits. Paranasal sinuses and mastoid air cells: No significant paranasal sinus disease. Visualized orbits: Bilateral aphakia IMPRESSION: 1. No evidence of intracranial mass or acute/subacute infarct. 2. Minimal Nonspecific white matter changes, likely secondary to small vessel ischemic disease.
--- NOTE | 2022-09-18 15:04 | MR ---
EXAMINATION TYPE: MR angio neck wo/w con DATE OF EXAM: 09/18/2022 2:40 PM CLINICAL INDICATION:Male, 71 years old with history of Amaurosis fugax; Neuro deficit, vision loss ri ght eye, evaluate for occlusion. COMPARISON: MRI brain same day. CTA 09/17/2022. TECHNIQUE: Multiplanar, multi-sequence imaging as well as [id number] and phase contrast imaging w as performed extracranial vasculature of the neck. 2-D and 3-D [id number] imaging. 3-D reformatte d images and maximum intensity projection reformatted images were submitted for evaluation. IV Contrast: 9 cc Gadavist FINDINGS: RIGHT CAROTID SYSTEM: The common carotid artery is patent. Atherosclerotic plaque with at least 50% s tenosis. The internal carotid arteries patent. LEFT CAROTID SYSTEM: The common carotid artery is patent. Atherosclerotic plaque with at least 25 % stenosis. The carotid bifurcations that she no evidence for hemodynamically significant stenosis. The internal carotid arteries patent. The origins of the great vessels and vertebral arteries appear unremarkable. The vertebral arteries a re codominant. 1. IMPRESSIONS: 2. Atherosclerosis at the carotid bifurcations with at least 50% stenosis on the right and 25% steno sis on the left. Similar findings are seen on 09/17/2022 CTA Angio neck which has better resolution. 3. The carotid and vertebral arteries are patent. 4. No evidence aneurysm.
[2022-09-18 17:34] VITALS: BP 134/67; RESP 18
--- NOTE | 2022-09-18 23:16 | PN ---
PROGRESS NOTE DATE OF SERVICE: 09/18/2022 SUBJECTIVE: This is a 71-year-old gentleman who was admitted with features of monocular vision loss in the right eye vision loss in the right eye and possible TIA, evaluated by Vascular surgery and MRI has been ordered. There is no history of any fever, rigors, or chills. Right carotid stenosis more than 50% per CTA. MRI of the brain is pending at this time. No chest pain, no palpitations. PHYSICAL EXAMINATION: VITAL SIGNS: Pulse is 74, blood pressure 127/70, and respirations 16. CHEST: Clear to auscultation. CARDIOVASCULAR: S1, S2. ABDOMEN: Soft. NERVOUS SYSTEM: No focal deficits. LABS: Reviewed. ASSESSMENT: 1. Right monocular vision loss with right carotid stenosis. 2. Hypertension. 3. History of peripheral vascular disease. RECOMMENDATIONS AND DISCUSSION: This 71-year-old gentleman was admitted with multiple complex medical issues, we will monitor the patient closely. I would recommend continue with antiplatelet agents and await MRI. Closely follow with Neurology, vascular surgery, and cardiology. Further recommendations to follow. MMODL / IJN: [id number] /
--- NOTE | 2022-09-19 14:16 | DS ---
DISCHARGE SUMMARY FINAL DIAGNOSES: 1. Right monocular vision loss, possibly right carotid stenosis and TIA. 2. Hypertension. 3. History of peripheral vascular disease. DISPOSITION: Patient will be discharged in stable condition. Guarded prognosis. with neurology and vascular surgery. HISTORY OF PRESENT ILLNESS: This is a 71-year-old gentleman with past medical history of multiple medical issues with right monocular vision loss. The patient had an MRI. Dr. Deluna cleared the patient for discharge. The patient will be discharged with further plans to follow up in the outpatient setting. PHYSICAL EXAMINATION: VITAL SIGNS: Stable. CARDIOVASCULAR: S1, S2 muffled. ABDOMEN: Soft. NERVOUS SYSTEM: No focal deficits. The patient will be discharged on Plavix and see the medication reconciliation sheet for list of medications. Follow up with Dr. Deluna, Dr. Jack, Neurology as recommended. Once again the patient will be discharged in stable condition with guarded prognosis. The patient is keen on going home. MMODL / IJN: [id number] / MTDD
--- NOTE | 2022-09-19 15:56 | P.PN ---
Subjective Progress Note Date: 09/18/22 Patient was seen for follow-up. Patient's was also present today. Patient feels back to normal. Offers no complaints. Telemetry monitoring showing sinus rhythm. Objective - Vital Signs Vital signs: Vital Signs Temp 97.8 F 09/18/22 08:18 Pulse 74 09/18/22 12:18 Resp 16 09/18/22 12:18 BP 127/74 09/18/22 12:18 Pulse Ox 97 09/18/22 12:18 FiO2 Intake & Output 09/17/22 09/18/22 09/18/22 18:59 06:59 18:59 Intake Total 540 20 Balance 540 20 Weight 90.718 kg Intake: IV 20 Invasive Line 1 20 Oral 540 Other: Voiding Method Toilet Toilet # Voids 1 2 1 - Exam Neurological examination completely normal. Cranial nerves, speech language functions, muscle strength, sensation cerebellar functions are normal. - Labs CBC & Chem 7: 09/17/22 10:54 09/17/22 13:39 Labs: Abnormal Lab Results - Last 24 Hours (Table) 09/17/22 Range/Units 10:54 HDL Cholesterol 34.90 L (40.00-60.00) mg/dL Assessment and Plan Assessment: * Amaurosis fugax, right eye, the symptoms resolved in 15 minutes. * Hypertension * Hyperlipidemia * X tobacco use * Peripheral arterial disease Plan: * Patient has presented with amaurosis fugax right eye, symptoms resolved in 15 minutes. Patient was taking aspirin 81 mg daily. Agree with adding Plavix 75 mg daily. Continue dual antiplatelet medications. * CTA of head and neck revealed moderate atherosclerotic changes of the bilateral carotid bifurcations. Moderate, just over 50% stenosis right carotid bulb. Left ICA stenosis of less than 25%. Severe, 90% stenosis of the origin of the left ECA and moderate stenosis at the origin of right ECA. CTA of the head showed nonvisualization of the takeoff of the right ophthalmic artery, could reflect vessel occlusion. Scattered mild atherosclerotic calcifications throughout the carotid siphons. No LVO. * MRI of the brain revealed no acute ischemic process. No acute stroke. Minimal nonspecific white matter changes, likely secondary to small vessel ischemic disease. I personally reviewed MRI agree with the findings. * MRA of the neck with and without contrast revealed atherosclerosis at the carotid bifurcation with at least 50% stenosis on the right and 25% stenosis on the left. Similar findings are seen on 09/17/2022 CTA head and neck. The carotid and vertebral arteries are patent. No aneurysm. * Discussed with vascular surgery. Recommending optimizing medical management with dual antiplatelet medication, and follow-up in their office. Their office ultrasound has some discrepancy with the above CTA and MRA reports. Vascular surgery not recommending surgery at this time. They will make decision as an outpatient after reviewing all test results. * Ophthalmology input appreciated. Recommending medical management. * 2-D echo revealed normal left ventricular size and systolic function with EF 55-60%. Mild MR, TR. No evidence of pulmonary hypertension. Left atrial size is normal. * Fasting lipid panel cholesterol 112, LDL 55, HDL 34 and triglycerides 107. * Hemoglobin A1c 5.7 * Telemetry monitoring, so far showing sinus rhythm, with no other arrhythmia. * Neurologically clear for discharge. Follow up with vascular surgery and ophthalmology.
== END 2022-09-18 20:30 | disposition home or self-care (01) | DRG 123 ==
LOC: EC 10:16 → 3SCARD 13:06
PROVIDERS: ADMIT Internal Medicine; ATTEND Internal Medicine
DX: G45.3 Amaurosis fugax (principal); I73.9 Peripheral vascular disease, unspecified; J44.9 Chronic obstructive pulmonary disease, unspecified; G31.9 Degenerative disease of nervous system, unspecified; I10 Essential (primary) hypertension; E78.5 Hyperlipidemia, unspecified; Z96.1 Presence of intraocular lens; Z97.3 Presence of spectacles and contact lenses; Z79.899 Other long term (current) drug therapy; Z79.02 Long term (current) use of antithrombotics/antiplatelets; Z79.82 Long term (current) use of aspirin; Z87.891 Personal history of nicotine dependence
CPT/HCPCS: 36415; 70450; 70496; 70498; 70549; 70551; 71046; 80053; 80061; 81003; 82550; 83036; 84132; 84484; 85025; 85610; 85730; 93005; 93306; 94760; 99291

== ENCOUNTER 2023-01-01 07:22 | Day surgery (SDC) | payer MEDICARE, BC ==
--- NOTE | 2023-01-01 07:03 | P.GSHP ---
History of Present Illness H&P Date: 01/01/23 CHIEF COMPLAINT: Colon screen HISTORY OF PRESENT ILLNESS: The patient is a 72-year-old male who presents for colon screen. Lower endoscopy was offered for further evaluation and management. PAST MEDICAL HISTORY: Please see list. PAST SURGICAL HISTORY: Please see list. MEDICATIONS: Please see list. ALLERGIES: Please see list. SOCIAL HISTORY: No illicit drug use FAMILY HISTORY: No reports of Crohn disease or ulcerative colitis. REVIEW OF ORGAN SYSTEMS: CONSTITUTIONAL: No reports of fevers or chills. PHYSICAL EXAM: VITAL SIGNS: Stable GENERAL: Well-developed pleasant in no acute distress. HEENT: No scleral icterus. Extraocular movements grossly intact. Moist buccal mucosa. NECK: Supple without lymphadenopathy. CHEST: Unlabored respirations. Equal bilateral excursions. CARDIOVASCULAR: Regular rate and rhythm. Distal 2+ pulses. ABDOMEN: Soft, nontender, nondistended. MUSCULOSKELETAL: No clubbing, cyanosis, or edema. ASSESSMENT: 1. Colon screen. PLAN: 1. Recommend proceeding with a lower endoscopy Past Medical History Past Medical History: CVA/TIA, Hyperlipidemia, Hypertension Additional Past Medical History / Comment(s): PAD, tia no residual History of Any Multi-Drug Resistant Organisms: None Reported Past Surgical History: No Surgical Hx Reported Additional Past Surgical History / Comment(s): raphael cataract removed Additional Past Anesthesia/Blood Transfusion Reaction / Comment(s): PT HAS NEVER RECEIVED ANESTHESIA. Smoking Status: Former smoker - Past Family History Mother Family Medical History: Cancer Additional Family Medical History / Comment(s): BREAST CANCER Medications and Allergies Home Medications Medication Instructions Recorded Confirmed Type Aspirin EC [Ecotrin Low Dose] 81 mg PO HS 05/14/15 12/29/22 History Atorvastatin [Lipitor] 40 mg PO DAILY 09/17/22 12/29/22 History Fish Oil/Dha/Epa [Fish Oil 1,200 2 cap PO DAILY 09/17/22 12/29/22 History mg Fish Oil] cilostazoL [Pletal] 100 mg PO BID 09/17/22 12/29/22 History lisinopriL [Prinivil] 20 mg PO DAILY 09/17/22 12/29/22 History Clopidogrel [Plavix] 75 mg PO DAILY 30 Days #30 tab 09/18/22 12/29/22 Rx Allergies Allergy/AdvReac Type Severity Reaction Status Date / Time No Known Allergies Allergy Verified 12/29/22 15:34
[2023-01-01 07:57] VITALS: TEMP 97.5
[2023-01-01] MEDS ORDERED: LACTATED RINGERS 1,000 ML IV ONE (08:09)
[2023-01-01] MEDS ORDERED: PROPOFOL 10 MG/ML 20 ML VIAL IV ONE (08:09)
--- NOTE | 2023-01-01 08:36 | P.PCN ---
Date of Procedure: 01/01/23 Description of Procedure: PREOPERATIVE DIAGNOSIS: Colonoscopy screening. POSTOPERATIVE DIAGNOSIS: Colonoscopy screening. Diverticulosis, scattered. OPERATION: Colonoscopy to the cecum, ileocecal valve and appendiceal orifice. SURGEON: Sho Beauchamp MD. ANESTHESIA: MAC. INDICATIONS: The patient is a 72-year-old female who presents for colonoscopy screening. Benefits and risks were described and informed consent was obtained. DESCRIPTION OF PROCEDURE: The patient had undergone GoLytely. The patient had been brought into the operating room and laid in the left lateral decubitus position. After adequate intravenous sedation, the rectum was examined with 2% lidocaine jelly. The prostate fossa was unremarkable. No external hemorrhoids were encountered. The rectal tone was within normal limits. No lesions were palpated in the rectal vault. An Olympus colonoscope was advanced until the cecum, ileocecal valve and appendiceal orifice were clearly viewed. The prep was excellent. Scattered diverticulosis was encountered. No colonic polyps were found. No evidence of focal colitis was found. Retroflexion of the scope demonstrated grade 1 internal hemorrhoids without active bleeding or inflammation. The colon was desufflated. The patient had tolerated the procedure well. Withdrawal time was over 6 minutes. FINDINGS: Aronchick preparation quality scale 2 (1-5) Internal hemorrhoids, grade 1 No external prolapsed hemorrhoids. No arteriovenous malformations. No adenomatous polyps. No focal colitis. Severe sigmoid diverticulosis RECOMMENDATIONS: Lower endoscopy 10 years, 2032 Plan - Discharge Summary Discharge Rx Participant: No New Discharge Prescriptions: Continue Aspirin EC [Ecotrin Low Dose] 81 mg PO HS lisinopriL [Prinivil] 20 mg PO DAILY cilostazoL [Pletal] 100 mg PO BID Atorvastatin [Lipitor] 40 mg PO DAILY Fish Oil/Dha/Epa [Fish Oil 1,200 mg Fish Oil] 2 cap PO DAILY Clopidogrel [Plavix] 75 mg PO DAILY 30 Days #30 tab Discharge Medication List Aspirin EC [Ecotrin Low Dose] 81 mg PO HS 05/14/15 [History] Atorvastatin [Lipitor] 40 mg PO DAILY 09/17/22 [History] Fish Oil/Dha/Epa [Fish Oil 1,200 mg Fish Oil] 2 cap PO DAILY 09/17/22 [History] cilostazoL [Pletal] 100 mg PO BID 09/17/22 [History] lisinopriL [Prinivil] 20 mg PO DAILY 09/17/22 [History] Clopidogrel [Plavix] 75 mg PO DAILY 30 Days #30 tab 09/18/22 [Rx] Follow up Appointment(s)/Referral(s): Sho Beauchamp MD [STAFF PHYSICIAN] - As Needed Patient Instructions/Handouts: Diverticulosis Diet (GEN), Diverticulosis (DC) Activity/Diet/Wound Care/Special Instructions: Repeat colonoscopy in 10 years, 2032 Discharge Disposition: HOME SELF-CARE
[2023-01-01 08:54] VITALS: BP 118/69; PULSE 79
[2023-01-01 08:55] VITALS: RESP 18
[2023-01-01] MEDS ORDERED: LACTATED RINGERS 1,000 ML IV SCH (09:03)
== END 2023-01-01 09:09 | disposition home or self-care (01) ==
LOC: ORWHC2ENDO 07:22
PROVIDERS: ATTEND Surgery Plastic and Reconstructive Surgery
DX: Z12.11 Encounter for screening for malignant neoplasm of colon (principal); K57.90 Diverticulosis of intestine, part unspecified, without perforation or abscess without bleeding; I10 Essential (primary) hypertension; E78.5 Hyperlipidemia, unspecified; I63.9 Cerebral infarction, unspecified; Z87.891 Personal history of nicotine dependence; Z79.02 Long term (current) use of antithrombotics/antiplatelets; Z79.82 Long term (current) use of aspirin; Z98.890 Other specified postprocedural states; Z79.899 Other long term (current) drug therapy
CPT/HCPCS: J2704; G0121

== ENCOUNTER 2023-11-04 12:00 | Day surgery (SDC) | payer MEDICARE, BC ==
[2023-11-04] MEDS: IV FLUID CONTINUATION 1,000 ML IV ONE (12:20)
[2023-11-04] MEDS: SODIUM CHLORIDE 0.9% 500 ML 500 ML IV SCH (12:21)
[2023-11-04 12:35] VITALS: RESP 16; TEMP 97.8
[2023-11-04 12:45] LABS: Basophils # (A) 0.1 k/uL (0-0.2); Basophils % (A) 1 %; Eosinophils # (A) 0.1 k/uL (0-0.7); Eosinophils % (A) 2 %; HCT 46.1 % (39.0-53.0); HGB 15.4 gm/dL (13.0-17.5); Lymphocytes # (A) 1.8 k/uL (1.0-4.8); Lymphocytes % (A) 26 %; MCH 32.2 pg (25.0-35.0); MCHC 33.3 g/dL (31.0-37.0); MCV 96.4 fL (80.0-100.0); Mean Platelet Volume 8.8; Monocytes # (A) 0.5 k/uL (0-1.0); Monocytes % (A) 7 %; Neutrophils # (A) 4.5 k/uL (1.3-7.7); Neutrophils % (A) 63 %; Platelet Count 205 k/uL (150-450); RBC 4.78 m/uL (4.30-5.90); RDW 12.6 % (11.5-15.5); WBC 7.1 k/uL (3.8-10.6)
[2023-11-04 12:57] LABS: African American GFR (CKD) 90 (>60 ml/min/1.73 sqM); Anion Gap 9 mmol/L; Blood Urea Nitrogen 21 mg/dL (9-20); Calcium 9.3 mg/dL (8.4-10.2); Carbon Dioxide 27 mmol/L (22-30); Chloride 106 mmol/L (98-107); Glucose 88 mg/dL (74-99); Non-African American GFR(CKD) 77 (>60 ml/min/1.73 sqM); Potassium 4.6 mmol/L (3.5-5.1); Sodium 142 mmol/L (137-145)
[2023-11-04] MEDS ORDERED: HEPARIN SODIUM 1,000 UN/ML (10ML VL) ONE (13:42)
[2023-11-04] MEDS ORDERED: VERAPAMIL 2.5 MG/ML 2 ML AMP ONE (13:42)
[2023-11-04] MEDS ORDERED: LIDOCAINE 1% INJ 10MG/ML (20 ML MDV) ONE (13:43)
[2023-11-04] MEDS ORDERED: fentaNYL (PF) 50 MCG/ML 2 ML AMP ONE (13:51)
[2023-11-04] MEDS: MIDAZOLAM 2 MG/2 ML VIAL IVP ONE (13:55)
[2023-11-04] MEDS: fentaNYL (PF) 50 MCG/ML 2 ML AMP IVP ONE (13:55)
[2023-11-04] MEDS: LIDOCAINE 1% INJ 10MG/ML (5 ML VIAL-PF) SQ ONE ×2 (13:55→13:58)
[2023-11-04] MEDS: NITROGLYCERIN 1000MCG/10ML SYRINGE INTRAARTER ONE (14:00)
[2023-11-04] MEDS: HEPARIN SODIUM 1,000 UN/ML (10ML VL) IVP ONE (14:00)
[2023-11-04] MEDS: VERAPAMIL SYRINGE (5 MG/10 ML) INTRAARTER ONE (14:00)
[2023-11-04] MEDS: IOPAMIDOL-250 100ML BTL INTRAARTER ONE (14:39)
--- NOTE | 2023-11-04 15:34 | P.OP ---
Date of Procedure: 11/04/23 Description of Procedure: Preoperative diagnosis: Carotid stenosis, discordance on imaging Postoperative diagnosis: Same Procedure: Ultrasound-guided left radial artery access Placement of catheter in ascending thoracic aorta Arch aortogram Selective right brachiocephalic angiogram Selective left carotid angiogram Moderate conscious sedation x 28 minutes with personal monitoring of certified RN administration and personal hemodynamic monitoring Surgeon: Marcela Linder D.O. EBL: Less than 5 cc IV fluids: See records Urine output: Not measured Drains: None Complications: None immediately apparent Condition: Stable to recovery Operative indication and findings: Patient is a 73-year-old male with previous ultrasound of his carotids showing high-grade stenosis, a CT scan follow-up showed no significant stenosis, on recurrent repeat ultrasound had worsening of his velocities therefore at this time he is taken for an angiogram. Risks and benefits were discussed. They seemingly understood and was willing to proceed. Procedure in detail: Patient was taken to the special suite and placed in supine position. The left upper extremity was prepped and draped in usual sterile fashion. A preprocedural timeout was performed, all parties were in agreement. Using the ultrasound, the left radial artery was identified. The skin overlying was anesthetized with 1% lidocaine plain. The artery was patent without significant calcific disease and a permanent image was stored. Under direct visualization, the artery was accessed and Seldinger technique was used to place a 5 slender sheath. Catheters and wires were then used to selectively place a catheter in the ascending thoracic aorta. Angiogram was performed. Multiple catheters and wires were used, the right brachiocephalic was accessed and an image was performed. The catheter was withdrawn and selectively placed into the left common carotid and repeat image was performed. After satisfactory images, catheters and wires were removed. The sheath was removed and a TR band was placed. Angiographic images. The aorta appeared normal in course and caliber. Type I aortic arch. Brachiocephalic artery appears normal in course and caliber. Visualized portions of the subclavian artery. Normal. Vertebral artery appears normal. The common carotid artery appears normal without significant disease. At the level of the internal carotid artery there is a long segment of significant narrowing consistent with measurements of greater than 90% stenosis. The left common carotid appears normal in course and caliber. The internal carotid artery has a long segment of approximately 75% stenosis. There is no visualized external carotid artery on the left. The left subclavian appears normal as well as the vertebral artery. Plan - Discharge Summary Discharge Rx Participant: No New Discharge Prescriptions: No Action Aspirin EC [Ecotrin Low Dose] 81 mg PO HS lisinopriL [Prinivil] 20 mg PO DAILY cilostazoL [Pletal] 100 mg PO BID Atorvastatin [Lipitor] 40 mg PO DAILY Fish Oil/Dha/Epa [Fish Oil 1,200 mg Fish Oil] 2 cap PO DAILY Clopidogrel [Plavix] 75 mg PO DAILY 30 Days #30 tab Discharge Medication List Aspirin EC [Ecotrin Low Dose] 81 mg PO HS 05/14/15 [History] Atorvastatin [Lipitor] 40 mg PO DAILY 09/17/22 [History] Fish Oil/Dha/Epa [Fish Oil 1,200 mg Fish Oil] 2 cap PO DAILY 09/17/22 [History] cilostazoL [Pletal] 100 mg PO BID 09/17/22 [History] lisinopriL [Prinivil] 20 mg PO DAILY 09/17/22 [History] Clopidogrel [Plavix] 75 mg PO DAILY 30 Days #30 tab 09/18/22 [Rx] Follow up Appointment(s)/Referral(s): Marcela Linder DO [STAFF PHYSICIAN] - 11/18/23 11:15 am (ThursdayOct AT 11:15 AM FOR FOLLOW UP APPOINTMENT. ) Patient Instructions/Handouts: Moderate Sedation (DC), Fall Prevention (DC), Angiogram (DC), After Radial Heart Catheterization (GEN) Activity/Diet/Wound Care/Special Instructions: No driving for two days Ok to shower tomorrow but no baths, pools, lakes, doing dishes by hand for five days. (REMOVE DRESSING AFTER 24 HOURS/NO NEED TO REAPPLY DRESSING.) Signs of infection IE: fever, rash, drainage from puncture site, swelling go to ER/doctor for immediate evaluation. Avoid using LEFT wrist/hand to bend, flex, lift greater than 5 lbs for five days. For Heavy Bleeding of puncture site apply firm direct pressure and return to ER. Do not attempt to drive self. low sodium/low fat diet medications as directed by DR LINDER ----RESUME PLAVIX, PLETAL, ASPIRIN TOMORROW ON 11/05/[address] LINDER Discharge Disposition: HOME SELF-CARE
[2023-11-04 17:02] VITALS: BP 120/65; PULSE 65
--- NOTE | 2023-11-25 22:46 | IR ---
EXAMINATION TYPE: IR angio carotid cereb BILAT DATE OF EXAM: 11/04/2023 2:52 PM COMPARISON: Pre Operative Images if available both CT/MRI or plain film CLINICAL INDICATION: Male, 73 years old with history of bilateral catroid stenosis, 11.4min fluoro, 1 2.7Gycm2; TECHNIQUE: IR angio carotid cereb BILAT, multiple fluoroscopic images provided for procedure. Total fluoroscopy time: 11.4 min Total submitted images to PACS: 48 DAP: 6.18 mGym2 Gycm2 uGym2 cGycm2 or equivalent. FINDINGS: IMPRESSION: 1. Report was generated for administrative purposes only. 2. Please see the operative/procedural note for further details. [facility], , 11/25/2023 10:44 PM
== END 2023-11-04 17:10 | disposition home or self-care (01) ==
LOC: CATHCVL 12:00
PROVIDERS: ATTEND Surgery
DX: I70.213 Atherosclerosis of native arteries of extremities with intermittent claudication, bilateral legs (principal); I65.29 Occlusion and stenosis of unspecified carotid artery; I10 Essential (primary) hypertension; F10.90 Alcohol use, unspecified, uncomplicated; Z79.02 Long term (current) use of antithrombotics/antiplatelets; Z79.899 Other long term (current) drug therapy; Z87.891 Personal history of nicotine dependence
CPT/HCPCS: 36217; 36222; 36223; 80048; 85025

== ENCOUNTER 2023-12-24 05:45 | Inpatient (IN) | payer MEDICARE, BC ==
[2023-12-22 14:22] VITALS: BMI 29.5
[2023-12-24] MEDS ORDERED: ASPIRIN 81 MG PO PRN (06:02)
[2023-12-24] MEDS ORDERED: NITROGLYCERIN SL TABS 0.4 MG TAB SUBLINGUAL PRN (06:02)
[2023-12-24] MEDS ORDERED: ALPRAZolam 0.5 MG TAB PO PRN (06:02)
[2023-12-24] MEDS ORDERED: CLOPIDOGREL 75 MG TAB PO PRN (06:02)
[2023-12-24] MEDS ORDERED: ALPRAZolam 0.25 MG TAB PO PRN (06:02)
[2023-12-24] MEDS: IV FLUID CONTINUATION 1,000 ML IV ONE ×5 (06:21→11:00)
[2023-12-24 06:31] LABS: Glucose,Whole Blood 117 mg/dL (70-110)
[2023-12-24] MEDS: SODIUM CHLORIDE 0.9% 1,000 ML in EMPTY BAG 1 BAG IV ONE (06:35)
[2023-12-24 06:42] LABS: Basophils % (A) 1 %; Eosinophils # (A) 0.1 k/uL (0-0.7); Eosinophils % (A) 3 %; HCT 41.4 % (39.0-53.0); HGB 13.8 gm/dL (13.0-17.5); Lymphocytes # (A) 1.3 k/uL (1.0-4.8); Lymphocytes % (A) 24 %; MCH 31.5 pg (25.0-35.0); MCHC 33.4 g/dL (31.0-37.0); MCV 94.3 fL (80.0-100.0); Mean Platelet Volume 8.5; Monocytes # (A) 0.4 k/uL (0-1.0); Monocytes % (A) 7 %; Neutrophils # (A) 3.7 k/uL (1.3-7.7); Neutrophils % (A) 65 %; Platelet Count 188 k/uL (150-450); RBC 4.39 m/uL (4.30-5.90); RDW 11.9 % (11.5-15.5); WBC 5.7 k/uL (3.8-10.6)
[2023-12-24 06:56] LABS: African American GFR (CKD) 80 (>60 ml/min/1.73 sqM); Anion Gap 6 mmol/L; Blood Urea Nitrogen 19 mg/dL (9-20); Calcium 9.1 mg/dL (8.4-10.2); Carbon Dioxide 23 mmol/L (22-30); Chloride 111 mmol/L (98-107); Glucose 112 mg/dL (74-99); Non-African American GFR(CKD) 70 (>60 ml/min/1.73 sqM); Potassium 4.5 mmol/L (3.5-5.1); Sodium 140 mmol/L (137-145)
[2023-12-24] MEDS ORDERED: DEXMEDETOMIDINE/0.9% NACL(PMX) 400 MCG/100 ML IV ONE (07:30)
[2023-12-24] MEDS ORDERED: HEPARIN SODIUM,PORCINE 10,000 UNIT/ML 1 ML VIAL ONE (07:30)
[2023-12-24] MEDS ORDERED: PROTAMINE SULFATE 10 MG/ML 5 ML VIAL ONE (07:30)
[2023-12-24] MEDS ORDERED: MIDAZOLAM 2 MG/2 ML VIAL ONE (07:30)
[2023-12-24] MEDS ORDERED: GLYCOPYRROLATE 0.2 MG/ML 2 ML VIAL ONE (07:30)
[2023-12-24] MEDS ORDERED: fentaNYL (PF) 50 MCG/ML 2 ML AMP ONE (07:30)
[2023-12-24] MEDS ORDERED: PHENYLEPHRINE 10 MG/ML VIAL ONE (07:30)
--- NOTE | 2023-12-24 07:33 | P.HPIHPCON ---
History of Present Illness H&P Date: 12/24/23 Patient is a 73-year-old male in today for right transcarotid artery revascularization. He has previously undergone imaging which showed elevation of velocities and subsequent angiographic imaging revealing 90% stenosis of the right internal carotid artery and around 75% stenosis of the left internal carotid artery. We discussed multiple modes of therapy including open carotid endarterectomy, transfemoral and transcarotid artery revascularization and through shared decision making decided to go forward with a transcarotid artery revascularization He seemingly understood the plan. Questions were answered. He presents today for this Consent for Procedure: I have explained the operation/procedure to the patient, including the risks, benefits, side effects, alternative therapies (including not receiving the proposed treatment or service), the likelihood of the patient achieving his/her goals, and potential recuperation problems for the procedure/sedation/analgesia, as well as any blood products, if indicated. I also explained to the patient the risks, benefits and side effects of the alternatives, as well as the risks related to not receiving the proposed procedure, care, treatment, or services. Past Medical History Past Medical History: CVA/TIA, Hyperlipidemia, Hypertension, Vascular Disorder Additional Past Medical History / Comment(s): rt carotid stenosis, tia August 2022-no residual,PAD History of Any Multi-Drug Resistant Organisms: None Reported Past Surgical History: No Surgical Hx Reported Additional Past Surgical History / Comment(s): raphael cataract removed Additional Past Anesthesia/Blood Transfusion Reaction / Comment(s): PT HAS NEVER RECEIVED GENERAL ANESTHESIA. Smoking Status: Former smoker - Past Family History Mother Family Medical History: Cancer Brother(s) Family Medical History: Cancer Additional Family Medical History / Comment(s): kidney Medications and Allergies Home Medications Medication Instructions Recorded Confirmed Type Aspirin EC [Ecotrin Low Dose] 81 mg PO HS 05/14/15 12/24/23 History Atorvastatin [Lipitor] 40 mg PO DAILY 09/17/22 12/24/23 History Fish Oil/Dha/Epa [Fish Oil 1,200 2 cap PO DAILY 09/17/22 12/24/23 History mg Fish Oil] cilostazoL [Pletal] 100 mg PO BID 09/17/22 12/24/23 History lisinopriL [Prinivil] 20 mg PO DAILY 09/17/22 12/24/23 History Clopidogrel [Plavix] 75 mg PO DAILY 30 Days #30 tab 09/18/22 12/24/23 Rx Allergies Allergy/AdvReac Type Severity Reaction Status Date / Time No Known Allergies Allergy Verified 12/22/23 14:03 Surgical - Exam Vital Signs Temp Pulse Resp BP Pulse Ox 98.4 F 101 H 14 133/62 96 12/24/23 06:17 12/24/23 06:17 12/24/23 06:17 12/24/23 06:17 12/24/23 06:17 General Is a pleasant cooperative male in no acute distress. Normocephalic, atraumatic, extraocular motion intact. Right neck clean, dry, intact. Cranial nerves II through XII grossly intact. Results - Labs 12/24/23 06:23 12/24/23 06:23 Abnormal Lab Results - Last 24 Hours (Table) 12/24/23 12/24/23 Range/Units 06:23 06:29 Chloride 111 H (98-107) mmol/L Glucose 112 H (74-99) mg/dL POC Glucose (mg/dL) 117 H (70-110) mg/dL Diabetes panel 12/24/23 Range/Units 06:23 Sodium 140 (137-145) mmol/L Potassium 4.5 (3.5-5.1) mmol/L Chloride 111 H (98-107) mmol/L Carbon Dioxide 23 (22-30) mmol/L BUN 19 (9-20) mg/dL Creatinine 1.07 (0.66-1.25) mg/dL Glucose 112 H (74-99) mg/dL Calcium 9.1 (8.4-10.2) mg/dL Calcium panel 12/24/23 Range/Units 06:23 Calcium 9.1 (8.4-10.2) mg/dL Pituitary panel 12/24/23 Range/Units 06:23 Sodium 140 (137-145) mmol/L Potassium 4.5 (3.5-5.1) mmol/L Chloride 111 H (98-107) mmol/L Carbon Dioxide 23 (22-30) mmol/L BUN 19 (9-20) mg/dL Creatinine 1.07 (0.66-1.25) mg/dL Glucose 112 H (74-99) mg/dL Calcium 9.1 (8.4-10.2) mg/dL Adrenal panel 10/31/24 Range/Units 06:23 Sodium 140 (137-145) mmol/L Potassium 4.5 (3.5-5.1) mmol/L Chloride 111 H (98-107) mmol/L Carbon Dioxide 23 (22-30) mmol/L BUN 19 (9-20) mg/dL Creatinine 1.07 (0.66-1.25) mg/dL Glucose 112 H (74-99) mg/dL Calcium 9.1 (8.4-10.2) mg/dL Assessment and Plan Assessment: High-grade right internal carotid artery stenosis High-grade left internal carotid artery stenosis Plan: Will plan today for transcarotid artery revascularization and stent. Questions were answered and patient and are seemingly understanding and in agreement with the plan. Patient has been taking his aspirin, Plavix and statin medications for at least the last week
[2023-12-24] MEDS: LIDOCAINE 1% INJ 10MG/ML (20 ML MDV) SQ ONE (08:11)
[2023-12-24] MEDS ORDERED: RX INFO: IV CONTRAST WAS GIVEN 1 EACH MISC MISCELLANE PRN (09:00)
[2023-12-24] MEDS: IOPAMIDOL-250 100ML BTL INTRAARTER ONE (09:20)
--- NOTE | 2023-12-24 09:37 | P.ANPRN ---
Procedure Note - Anesthesia - Invasive Line Left Arterial Line Time Out Performed: Yes (0714) Date of Procedure: 12/24/23 Time of Procedure: 07:15 Location of Patient: PreOp Preparation: Sterile Prep, Sterile Dressing Arterial Line Location: Radial (right) Ultrasound Used: No Purpose - Visualization and Identification of Vasculature: No Needle Guage: 20g Image Stored and Saved: No Narrative: Invasive line placement per sterile protocol utilized.
[2023-12-24] MEDS: PHENYLEPHRINE-0.9% NACL SYG 1,000 MCG/10 ML SYRINGE IVP ONE ×6 (09:55→10:35)
[2023-12-24] MEDS ORDERED: MAG HYDROX/AL HYDROX/SIMETH 30 ML CUP PO PRN (09:57)
[2023-12-24] MEDS ORDERED: ATROPINE SULFATE 0.1 MG/ML 10ML SYRINGE IV PRN (09:57)
--- NOTE | 2023-12-24 09:57 | P.OP ---
Date of Procedure: 12/24/23 Description of Procedure: Preoperative diagnosis: Asymptomatic high-grade right internal carotid artery stenosis Postoperative diagnosis: Same Procedure: Right transcarotid artery revascularization with stenting. Right common femoral vein central venous catheter placement under ultrasound guidance Surgeon: Marcela Deluna DO Game Preserve Manager: Ashley Anesthesia: Conscious sedation Complications: None Condition: Stable Flow reversal time: 10 minutes Lesion length: 20 mm Indication for procedure: Patient is a 73-year-old male with high-grade right internal carotid artery stenosis after confirming with angiographic imaging. Multiple discussions were had in the office regarding options going forward. We discussed carotid endarterectomy, transfemoral and transcarotid artery stenting. Through shared decision making decided it would be best to go forward with transcarotid artery revascularization and stent. He seemingly understood the risks and benefits and was willing to proceed. Operative narrative: the patient was brought to the Small Business Banking Officer and laid in a supine position. The area of the neck and groins were prepped and draped in usual sterile fashion after appropriate anesthetic was performed per the anesthesiologist. A timeout was performed in normal fashion and antibiotics were administered prior to incision. Utilizing ultrasound the right common carotid artery was located and a transverse incision was created overlying this area after proper anesthetization. Dissection was carried between the sternocleidomastoid musculature down to the carotid sheath. The sheath was then incised and the common carotid artery was located and dissected free in a circumferential manner and controlled with umbilical tape. Once controlled, attention was placed down to the common femoral vein and utilizing ultrasound the vein was cannulated and the 8-[place] sheath was placed in normal fashion. Attention was then placed back to the carotid artery and the patient was administered heparin and followed with ACTs and redosed as needed for ACT above 250. A pursestring suture was then placed at the common carotid artery with 5-0 Prolene and utilizing a micropuncture needle the common carotid artery was accessed and wire was placed followed by a 4-[place] sheath. Carotid angiogram was then obtained demonstrating significant stenosis in the internal carotid artery. Stiff wire was then placed followed by the 8 [place] sheath. Flow reversal was then established with the enroute DIGITAL RECRUITER system after patient's blood pressure was increased to above 160, heart rate above 60 and appropriate ACT. 014 wire was then placed across the lesion followed by a 5 x 30 mm Tobar balloon and balloon angioplasty was performed followed by an 10 x 40 mm [place] stent. Postdilatation was performed and final angiogram was obtained demonstrating complete resolution of the stenosis. All guidewires and catheters were removed and the sheath was removed and the arteriotomy was secured with the previously placed pursestring suture. Hemostasis was assured with Gelfoam and thrombin. The area was irrigated and closed. The platysma was closed with 3-0 Vicryl. The skin was closed with running 4-0 Monocryl in subcuticular fashionThe femoral sheath was also removed and pressure was held for hemostasis. The patient all procedure well and was moving all extremities and following commands. The patient was then sent to PACU for recovery.
[2023-12-24] MEDS: PHENYLEPHRINE 40 MG in SODIUM CHLORIDE 0.9% 250 ML IV ONE (11:05)
[2023-12-24] MEDS: ceFAZolin 1,000 MG in SODIUM CHLORIDE 0.9% IRRIG BTL 250 ML IRRIGATION STA (12:47)
[2023-12-24] MEDS: lisinopriL 20 MG TAB PO SCH (12:47)
[2023-12-24 13:02] LABS: Glucose,Whole Blood 79 mg/dL (70-110)
--- NOTE | 2023-12-24 14:29 | P.CONS ---
History of Present Illness - Reason for Consult Consult date: 12/24/23 - History of Present Illness Patient is a 73-year-old male with PMH of hypertension, hyperlipidemia, PAD and TIA underwent scheduled right transcarotid artery revascularization with stenting on 12/24/2023 for his high-grade right carotid stenosis. [facility] physicians is being consulted for medical management for this patient. Patient has tolerated the procedure well. No intraoperative complication. Patient tr ansferred to ICU and is currently on Ronald-Synephrine drip for blood pressure support. Patient is not complaining of any chest pain, shortness of breath, acute vision changes, abdominal discomfort, numbness or weakness in upper or lower extremities. Physical examination: Vital signs reviewed General: non toxic, no distress, appears at stated age, normal weight Derm: no unusual rashes/lesions, warm, surgical site clean and intact. Head: atraumatic, normocephalic, symmetric Eyes: EOMI, no lid lag, anicteric sclera, pupils equal round reactive to light ENT: Nose and ears atraumatic Neck: No cervical lymphadenopathy, trachea midline, supple Mouth: no lip lesion, mucus membranes moist Cardiovascular: S1S2 reg, no murmur, positive dorsalis pedis pulse bilateral, no edema Lungs: CTA bilateral, no rhonchi, no rales, no accessory muscle use Abdominal: soft, nontender to palpation, no guarding Ext: muscle strength 5 out of 5 in all 4 extremities grossly, no gross muscle atrophy, no contractures, Psych: Alert, oriented, appropriate affect Assessment/Plan: Patient is a 73-year-old male with PMH of hypertension, hyperlipidemia, PAD and TIA underwent scheduled right transcarotid artery revascularization with stenting on 12/24/2023 for his high-grade right carotid stenosis. Internal medicine service is being consulted for medical management for this patient. Postop day 0. #Right severe carotid artery stenosis status post PCI #Postoperative hypotension -Continue on aspirin 81 mg, atorvastatin 80 mg nightly, Plavix 75 mg daily -CBC and BMP tomorrow -Vascular surgery following -Wean phenylephrine Chronic conditions: Hypertension: Hold lisinopril Hyperlipidemia: Resume fish oil tablets PAD-continue therapy as above TIA-continue therapy as above Thank you for allowing us to participate in the care of this pleasant patient. Do not hesitate to contact us with questions. Someone can be reached from the [facility] hospitalist group all hours of the day at [phone] or via [employer]. I have seen and evaluated the patient today. Discussed with the resident and agree with the residents finding and plan as documented in the resident's note. Changes highlighted in blue font. Past Medical History Past Medical History: CVA/TIA, Hyperlipidemia, Hypertension, Vascular Disorder Additional Past Medical History / Comment(s): rt carotid stenosis, tia August 2022-no residual,PAD History of Any Multi-Drug Resistant Organisms: None Reported Past Surgical History: No Surgical Hx Reported Additional Past Surgical History / Comment(s): raphael cataract removed Additional Past Anesthesia/Blood Transfusion Reaction / Comm: PT HAS NEVER RECEIVED GENERAL ANESTHESIA. Smoking Status: Former smoker - Past Family History Mother Family Medical History: Cancer Brother(s) Family Medical History: Cancer Additional Family Medical History / Comment(s): kidney Medications and Allergies Home Medications Medication Instructions Recorded Confirmed Type Aspirin EC [Ecotrin Low Dose] 81 mg PO HS 05/14/15 12/24/23 History Atorvastatin [Lipitor] 40 mg PO DAILY 09/17/22 12/24/23 History Fish Oil/Dha/Epa [Fish Oil 1,200 2 cap PO DAILY 09/17/22 12/24/23 History mg Fish Oil] cilostazoL [Pletal] 100 mg PO BID 09/17/22 12/24/23 History lisinopriL [Prinivil] 20 mg PO DAILY 09/17/22 12/24/23 History Clopidogrel [Plavix] 75 mg PO DAILY 30 Days #30 tab 09/18/22 12/24/23 Rx Allergies Allergy/AdvReac Type Severity Reaction Status Date / Time No Known Allergies Allergy Verified 12/22/23 14:03 Physical Exam Vitals: Vital Signs Temp Pulse Resp BP BP BP Pulse Ox 12/24/23 12:30 65 16 143/76 139/73 100 12/24/23 12:15 76 16 116/54 117/58 99 12/24/23 12:00 74 16 134/63 131/64 99 12/24/23 11:56 114/55 112/56 12/24/23 11:45 72 16 134/59 125/61 99 12/24/23 11:30 67 16 139/66 142/63 100 12/24/23 11:15 64 16 140/72 144/67 100 12/24/23 11:00 62 16 124/64 122/67 99 12/24/23 10:45 68 18 121/70 118/71 99 12/24/23 10:30 71 16 118/69 116/73 100 12/24/23 10:15 70 16 114/61 112/69 100 12/24/23 10:00 72 14 117/64 115/68 98 12/24/23 09:43 96.8 F L 73 16 99/57 103/77 97 12/24/23 06:17 98.4 F 101 H 14 133/62 131/65 96 Intake and Output 12/23/23 12/24/23 12/24/23 22:59 06:59 14:59 Intake Total 50 563.037 Output Total 300 Balance 50 263.037 Intake: IV 50 545 Sodium Chloride 0.9% 1, 95 000 ml In Empty Bag 1 bag @ 1 ML/KG/HR 90.718 mls/ hr IV .Q11H2M ONE Rx#: [id number] Intake, IV Titration 18.037 Amount Phenylephrine 40 mg In 18.037 Sodium Chloride 0.9% 250 ml @ 0.5 MCG/KG/MIN 17. 888 mls/hr IV .[id number] ONE Rx#:[id number] Output: Urine 300 Other: Voiding Method Urinal Weight 93.9 kg Results CBC & Chem 7: 12/24/23 06:23 12/24/23 06:23 Labs: Abnormal Lab Results - Last 24 Hours (Table) 12/24/23 12/24/23 Range/Units 06:23 06:29 Chloride 111 H (98-107) mmol/L Glucose 112 H (74-99) mg/dL POC Glucose (mg/dL) 117 H (70-110) mg/dL
[2023-12-24] MEDS: ATORVASTATIN 40 MG TAB PO SCH (19:28)
[2023-12-25] MEDS: PHENYLEPHRINE 40 MG in SODIUM CHLORIDE 0.9% 250 ML IV SCH (01:59)
[2023-12-25 04:19] LABS: Basophils # (A) 0.1 k/uL (0-0.2); Basophils % (A) 1 %; Eosinophils # (A) 0.1 k/uL (0-0.7); Eosinophils % (A) 1 %; HCT 37.3 % (39.0-53.0); HGB 12.7 gm/dL (13.0-17.5); Lymphocytes # (A) 1.9 k/uL (1.0-4.8); Lymphocytes % (A) 22 %; MCH 32.3 pg (25.0-35.0); Mean Platelet Volume 8.6; Monocytes # (A) 0.6 k/uL (0-1.0); Monocytes % (A) 7 %; Neutrophils # (A) 5.8 k/uL (1.3-7.7); Neutrophils % (A) 68 %; Platelet Count 199 k/uL (150-450); RBC 3.93 m/uL (4.30-5.90); RDW 11.9 % (11.5-15.5); WBC 8.5 k/uL (3.8-10.6)
[2023-12-25 04:37] LABS: African American GFR (CKD) 90 (>60 ml/min/1.73 sqM); Anion Gap 3 mmol/L; Blood Urea Nitrogen 16 mg/dL (9-20); Calcium 8.4 mg/dL (8.4-10.2); Carbon Dioxide 21 mmol/L (22-30); Chloride 115 mmol/L (98-107); Glucose 101 mg/dL (74-99); Non-African American GFR(CKD) 77 (>60 ml/min/1.73 sqM); Potassium 4.4 mmol/L (3.5-5.1); Sodium 139 mmol/L (137-145)
[2023-12-25] MEDS: CLOPIDOGREL 75 MG TAB PO SCH (08:47)
[2023-12-25] MEDS: ASPIRIN 81 MG PO SCH (08:47)
[2023-12-25] MEDS ORDERED: NON FORMULARY DRUG (Fish Oil/Dha/Epa [Fish Oil 1,200 Mg Fish Oil] 1 EACH Capsule) PO SCH (09:00)
[2023-12-25] MEDS: PSEUDOEPHEDRINE 30 MG TAB PO SCH (11:49)
[2023-12-25 12:44] VITALS: BP 116/73; TEMP 98.1
--- NOTE | 2023-12-25 13:29 | P.DS ---
Providers Date of admission: 12/24/23 05:45 Expected date of discharge: 12/25/23 Attending physician: Marcela Deluna DO Consults: 12/24/23 09:57 Consult Physician Routine Consulting Provider: Kortney Erwin Consult Reason/Comments: med mgmnt, post carotid stent Do you want consulting provider notified?: Yes Primary care physician: [facility] Course: This is a pleasant 73-year-old male who was scheduled for outpatient right transcarotid artery revascularization with stenting for asymptomatic high-grade right internal carotid artery stenosis. He is postop day #1. Patient was admitted to the ICU on Ronald-Synephrine overnight. This was weaned and discontinued this morning. Patient was maintaining systolic blood pressures in the 100s to 119. Pseudoephedrine 60 mg p.o. was given to patient with improvement in blood pressure and he has been maintaining in systolic blood pressures 115-119. He denies any focal deficits. He denies any dizziness, shortness of breath or chest pain. Denies any difficulty with swallowing. No swelling in his neck and no bleeding from his groin. He has been up and ambulating, he is voiding without difficulty. WBC 8.5 hemoglobin 12.7 platelet count 199,000 sodium 139 potassium 4.4 Exam General appearance: The patient is alert, oriented, appears in no acute distress. HET: Head is normocephalic and atraumatic. Pupils are equal and reactive. Neck: Supple. Right side of neck incision well-approximated with minimal bruising and swelling. No hematoma noted. Heart: Regular. Lungs: Equal expansion, normal respiratory effort. Abdomen: Soft, nontender, nondistended. Extremities: Normal skin color and turgor. Right groin access site with minimal ecchymosis, no hematoma or bleeding. Neurological: No focal deficits. Strength and sensation are grossly intact. Assessment Asymptomatic high-grade right internal carotid artery stenosis status post right transcarotid artery revascularization with stenting History hypertension, lisinopril on hold Plan 1. Encourage ambulation 2. Discontinue arterial line 3. Discontinue Ronald-Synephrine 4. Hold lisinopril, instructed patient and to hold lisinopril until follow-up with his PCP 5. Start pseudoephedrine 60 mg p.o. every 6 hours 6. Patient has home care set up for discharge 7. Discharge instructions reviewed with patient 8. Patient is cleared for discharge. Follow-up with Dr. Deluna in 2 weeks. The impression and plan of care has been dictated as directed. I performed a history and examination of this patient, discussed the same with the dictator. I agree with the dictator's note ,documented as a scribe. Any additional findings or plans will be noted. Procedures: Right transcarotid artery revascularization with stenting Patient Condition at Discharge: Stable Plan - Discharge Summary Discharge Rx Participant: No New Discharge Prescriptions: Continue Aspirin EC [Ecotrin Low Dose] 81 mg PO HS cilostazoL [Pletal] 100 mg PO BID Atorvastatin [Lipitor] 40 mg PO DAILY Fish Oil/Dha/Epa [Fish Oil 1,200 mg Fish Oil] 2 cap PO DAILY Clopidogrel [Plavix] 75 mg PO DAILY 30 Days #30 tab Discontinued lisinopriL [Prinivil] 20 mg PO DAILY Discharge Medication List Aspirin EC [Ecotrin Low Dose] 81 mg PO HS 05/14/15 [History] Atorvastatin [Lipitor] 40 mg PO DAILY 09/17/22 [History] Fish Oil/Dha/Epa [Fish Oil 1,200 mg Fish Oil] 2 cap PO DAILY 09/17/22 [History] cilostazoL [Pletal] 100 mg PO BID 09/17/22 [History] Clopidogrel [Plavix] 75 mg PO DAILY 30 Days #30 tab 09/18/22 [Rx] Follow up Appointment(s)/Referral(s): Marcela Deluna DO [STAFF PHYSICIAN] - 01/06/24 10:45 am Sydney Sanchez DO [Primary Care Provider] - 3 Days Patient Instructions/Handouts: Carotid Artery Stent Placement (DC) Activity/Diet/Wound Care/Special Instructions: No strenuous activity or heavy lifting greater than 10 pounds. May shower tomorrow but no tub bathing or soaking. Watch incision site for infection including redness, drainage, or temperature greater than 100.4. If you notice he symptoms please call office Hold blood pressure medication lisinopril 20 mg daily until further evaluated by your primary care physician Take pseudoephedrine HCl (Sudafed) 60 mg orally every 6 hours until Thursday Make appointment with Dr. Sanchez for early next week Thursday or Thursday Discharge Disposition: HOME SELF-CARE
[2023-12-25 13:57] VITALS: PULSE 94; RESP 22
--- NOTE | 2023-12-25 16:02 | P.PN ---
Subjective Progress Note Date: 12/25/23 Subjective: Patient was seen and examined at the bedside. No acute events overnight. Objective: Physical examination: Vital signs reviewed General: non toxic, no distress, appears at stated age, normal weight Derm: no unusual rashes/lesions, warm, surgical site clean and intact. Head: atraumatic, normocephalic, symmetric Eyes: EOMI, no lid lag, anicteric sclera, pupils equal round reactive to light ENT: Nose and ears atraumatic Neck: No cervical lymphadenopathy, trachea midline, supple Mouth: no lip lesion, mucus membranes moist Cardiovascular: S1S2 reg, no murmur, positive dorsalis pedis pulse bilateral, no edema Lungs: CTA bilateral, no rhonchi, no rales, no accessory muscle use Abdominal: soft, nontender to palpation, no guarding Ext: muscle strength 5 out of 5 in all 4 extremities grossly, no gross muscle atrophy, no contractures, Psych: Alert, oriented, appropriate affect Labs reviewed Images reviewed Assessment/Plan: Patient is a 73-year-old male with PMH of hypertension, hyperlipidemia, PAD and TIA underwent scheduled right transcarotid artery revascularization with stenting on 12/24/2023 for his high-grade right carotid stenosis. Internal medicine service is being consulted for medical management for this patient. Postop day 1. Patient is medically optimized for discharge from medicine standpoint. #Right severe carotid artery stenosis status post PCI #Postoperative hypotension -Continue on aspirin 81 mg, atorvastatin 80 mg nightly, Plavix 75 mg daily -Vascular surgery following -Wean phenylephrine Chronic conditions: Hypertension: Hold lisinopril Hyperlipidemia: Resume fish oil tablets PAD-continue therapy as above TIA-continue therapy as above Thank you for allowing us to participate in the care of this pleasant patient. Do not hesitate to contact us with questions. Someone can be reached from the [facility] hospitalist group all hours of the day at [phone] or via [employer]. I saw and evaluated the patient during the jaquez and critical portions of this encounter, and discussed the case in detail with the resident author of this note, I agree with the Assessment and Plan, and my changes, if any, are highlighted in blue. Objective - Vital Signs Vital signs: Vital Signs Temp 98.1 F 12/25/23 12:00 Pulse 94 12/25/23 13:00 Resp 22 12/25/23 13:00 BP 116/73 11/01/24 13:00 Pulse Ox 96 12/25/23 13:00 FiO2 Intake & Output 12/24/23 12/25/23 12/25/23 18:59 06:59 18:59 Intake Total 1966.265 372.409 58.817 Output Total 800 1730 0 Balance 1166.265 -1357.591 58.817 Weight 94.5 kg Intake: IV 940 170 20 Sodium Chloride 0.9% 1, 490 170 20 000 ml In Empty Bag 1 bag @ 1 ML/KG/HR 90.718 mls/ hr IV .Q11H2M ONE Rx#: [id number] Intake, IV Titration 26.265 202.409 38.817 Amount Phenylephrine 40 mg In 26.265 105.514 Sodium Chloride 0.9% 250 ml @ 0.5 MCG/KG/MIN 17. 888 mls/hr IV .[id number] ONE Rx#:[id number] Phenylephrine 40 mg In 96.895 38.817 Sodium Chloride 0.9% 250 ml @ 0.6 MCG/KG/MIN 21. 466 mls/hr IV .[id number] [facility] Rx#:[id number] Oral 1000 Output: Urine 800 1730 0 Other: Voiding Method Urinal Urinal Toilet Urinal # Voids 1 # Bowel Movements 1 ABP, PAP, CO, CI - Last Documented Arterial Blood Pressure 111/42 - Labs CBC & Chem 7: 12/25/23 04:12 12/25/23 04:12 Labs: Abnormal Lab Results - Last 24 Hours (Table) 12/25/23 12/25/23 Range/Units 04:12 04:12 RBC 3.93 L (4.30-5.90) m/uL Hgb 12.7 L (13.0-17.5) gm/dL Hct 37.3 L (39.0-53.0) % Chloride 115 H (98-107) mmol/L Carbon Dioxide 21 L (22-30) mmol/L Glucose 101 H (74-99) mg/dL
--- NOTE | 2023-12-31 14:18 | IR ---
EXAMINATION TYPE: IR angio carotid cerv RT DATE OF EXAM: 12/24/2023 12:54 PM COMPARISON: Pre Operative Images if available both CT/MRI or plain film CLINICAL INDICATION: Male, 73 years old with history of TCAR, 3.6 MINS FLT, 0.079 GY; TECHNIQUE: IR angio carotid cerv RT, multiple fluoroscopic images provided for procedure. Total fluoroscopy time: 3.6 min Total submitted images to PACS: 50 DAP: 0.079 mGym2 Gycm2 uGym2 cGycm2 or equivalent. FINDINGS: IMPRESSION: 1. Report was generated for administrative purposes only. 2. Please see the operative/procedural note for further details. [facility], , 12/28/2023 4:01 PM
--- NOTE | 2024-01-01 21:05 | CDI ---
Documentation Clarification Form Date: 01/01/2024 08:51:31 PM From: Lea Torres Phone: Admit Date: 12/24/2023 05:45:00 AM Patient Name: Nato Herman Visit Number: [id number] Discharge Date: 12/25/2023 02:16:00 PM ATTENTION: The Clinical Documentation Specialists (CDI) and [facility] Coding Staff appreciate your assistance in clarifying documentation. Please respond to the clarification below the line at the bottom and electronically sign. The CDI & [facility] Coding staff will review the response and follow-up if needed. Please note: Queries are made part of the Legal Health Record. If you have any questions, please contact the author of this message via ITS. Doctor/Provider: Hodan Ahumada Postoperative hypotension is documented per Consult 12/23 and Progress Note 12/24. Additional clarification regarding hypotension is requested. 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 [ ] Yes [ ] No [ ] Other, please specify [ ] Unable to determine (Template Last Revised: April 2020) MTDD
--- NOTE | 2024-01-04 10:09 | CDI ---
Documentation Clarification Form Date: 01/04/2024 10:06:11 AM From: Lea Torres Phone: Admit Date: 12/24/2023 05:45:00 AM Patient Name: Nato Herman Visit Number: [id number] Discharge Date: 12/25/2023 02:16:00 PM ATTENTION: The Clinical Documentation Specialists (CDI) and [facility] Coding Staff appreciate your assistance in clarifying documentation. Please respond to the clarification below the line at the bottom and electronically sign. The CDI & [facility] Coding staff will review the response and follow-up if needed. Please note: Queries are made part of the Legal Health Record. If you have any questions, please contact the author of this message via ITS. Doctor/Provider: Marcela Deluna Postoperative hypotensionis documented per Consult 12/23 and Progress Note 12/24. Additional clarification regardinghypotensionis requested. Patients Admitting Diagnosis: 90%stenosisof the KASEY, 75%stenosisof the LICA Post-OperativeDiagnosis: 90%stenosisof the KASEY, 75%stenosisof the LICA Procedure performed:Postoperative hypotension History/Risk Factors: 73yo M, 90%stenosisRICA, 75%stenosisLICA,HTN,HLD,PVD,Hx TIA,former smoker Clinical Indicators: 12:30 143/76 139/73 12:15 116/54 117/58 12:00 134/63 131/64 11:56 114/55 112/56 11:45 134/59 125/61 11:30 139/66 142/63 11:15 140/72 144/67 11:00 124/64 122/67 10:45 121/70 118/71 10:30 118/69 116/73 10:15 114/61 112/69 10:00 117/64 115/68 09:43 99/57 103/77 06:17 133/62 131/65 Treatment:Tyrxwnaacykjg49 mg Please clarify ifPostoperative hypotensionis acomplication ofthe surgical procedure? [ ] Yes [ x] No [ ] Other, please specify [ ] Unable to determine (Template LastRevised: April 2020) MTDD
== END 2023-12-25 14:16 | disposition home or self-care (01) | DRG 36 ==
LOC: 2ORMAIN 05:45 → 2SICU 11:32
PROVIDERS: ADMIT Surgery; ATTEND Surgery
PROC: 3E043XZ Introduction of Vasopressor into Central Vein, Percutaneous Approach (ICD-10-PCS; 2023-12-24)
PROC: 037K3DZ Dilation of Right Internal Carotid Artery with Intraluminal Device, Percutaneous Approach (ICD-10-PCS; principal; 2023-12-24 07:30)
PROC: 06HY33Z Insertion of Infusion Device into Lower Vein, Percutaneous Approach (ICD-10-PCS; 2023-12-24 07:30)
DX: I65.23 Occlusion and stenosis of bilateral carotid arteries (principal); I73.9 Peripheral vascular disease, unspecified; E78.5 Hyperlipidemia, unspecified; I10 Essential (primary) hypertension; Z86.73 Personal history of transient ischemic attack (TIA), and cerebral infarction without residual deficits; Z79.02 Long term (current) use of antithrombotics/antiplatelets; Z79.899 Other long term (current) drug therapy; Z79.82 Long term (current) use of aspirin; Z87.891 Personal history of nicotine dependence; I95.9 Hypotension, unspecified
CPT/HCPCS: 37215; 76937; 80048; 85025; 86850; 86900; 86901

== ENCOUNTER → 2024-09-06 | Outpatient (CLI) | payer MEDICARE, BC ==
[2024-09-06 08:11] LABS: African American GFR (CKD) >90 (>60 ml/min/1.73 sqM); Blood Urea Nitrogen 18 mg/dL (9-20); Non-African American GFR(CKD) 81 (>60 ml/min/1.73 sqM)
--- NOTE | 2024-09-06 11:58 | CT ---
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 Axial images are supplemented with coronal and sagittal MIP reconstructions. 3D reconstructions were also performed and were post-processed at an independent workstation. Estimated carotid stenosis was calculated using the NASCET criteria. Contrast used:65ml mL of Isovue 370 with IV Contrast, Oral contrast used: , None. CT DLP: 427 mGycm, Automated exposure control for dose reduction was used. FINDINGS: CTA NECK: Right Carotid System: The common carotid artery and external carotid artery are patent. Stent graft of the proximal portion appears patent there is narrowing up to 50% of the lumen. The carotid bifurcation demonstrates no ev idence of hemodynamically significant stenosis. The remaining portions of the internal carotid artery demonstrate normal size without significant narrowing. Left Carotid System: The common carotid and external carotid arteries are patent. There is approximately 27 % stenosis at the carotid bifurcation secondary to calcified/noncalcified plaque. The rest of the internal carotid artery is patent. Vertebral arteries are patent without evidence hemodynamically significant stenosis. There is a three-vessel aortic arch. The origins of the great vessels are patent. No evidence of hemo dynamically significant stenosis. Upper thorax: Mild to moderate centrilobular emphysema changes of the lungs and paraseptal emphysema changes. Posterior left upper lung calcified granuloma. Streaky probable scarring right lateral lung series 6 image 268 and to 77. IMPRESSION: 1. Right carotid stent graft appears patent. 2. Calcified plaque at the left carotid bifurcation with less than 27% stenosis. 3. Vertebral arteries are patent. 4. [id number] emphysema. [facility], , 09/06/2024 11:56 AM
== END | disposition home or self-care (01) ==
LOC: RADCTMAIN 07:16
PROVIDERS: ATTEND Surgery
DX: I65.23 Occlusion and stenosis of bilateral carotid arteries (principal); J43.2 Centrilobular emphysema; I65.22 Occlusion and stenosis of left carotid artery
CPT/HCPCS: 82565; 84520; 70498; 36415; Q9967